=== PATIENT | male | born 1955 | race Caucasian/White ===

== ENCOUNTER 2017-01-20 09:42 | Emergency (ER) | payer MEDICARE, MEDICAID ==
--- NOTE | 2017-01-20 10:17 | ER Document Report ---
ED Medical Screen (RME) - General Mode of Arrival: Wheelchair Information source: Patient TRAVEL OUTSIDE OF THE [place] IN LAST 30 DAYS: No <MARILYN CHILDERS - Last Filed: 01/20/17 13:12> <GINA ASCENCIO - Last Filed: 01/20/17 13:54> <VIVEK WILL - Last Filed: 01/20/17 14:03> - General Chief Complaint: Pedal Edema Stated Complaint: RIGHT FOOT PAIN AND SWELLING Notes: Pt presents today with c/o right foot swelling and erythema for the last few weeks. Pt reports it "started here" and points to a location on the bottom of his foot. Pt is a heavy smoker and has been for quite some time. Pt denies a history of DM, fevers, or shortness of breath. (MARILYN CHILDERS) - Related Data Allergies/Adverse Reactions: aspirin [Aspirin] Adverse Reaction (Intermediate, Verified 01/20/17 09:56) GI upset iodine [Iodine] Adverse Reaction (Verified 01/20/17 09:56) Hives Past Medical History - Past Medical History Cardiac Medical History: Reports: Hx Hypertension Denies: Hx Coronary Artery Disease, Hx Heart Attack Pulmonary Medical History: Reports: Hx Asthma, Hx COPD Denies: Hx Bronchitis, Hx Pneumonia, Hx Tuberculosis Neurological Medical History: Denies: Hx Cerebrovascular Accident, Hx Seizures Renal/ Medical History: Reports: Hx Benign Prostatic Hyperplasia. Denies: Hx Peritoneal Dialysis GI Medical History: Reports: Hx Gastroesophageal Reflux Disease, Hx Ulcer Musculoskeltal Medical History: Reports Hx Arthritis Psychiatric Medical History: Reports: Hx Depression Past Surgical History: Reports: Hx Orthopedic Surgery - right foot, Hx Vascular Surgery - stents BLE - Immunizations Hx Diphtheria, Pertussis, Tetanus Vaccination: Yes <MARILYN CHILDERS - Last Filed: 01/20/17 13:12> Review of Systems - Review of Systems Musculoskeletal: See HPI, Joint pain - right foot swelling/erythema <MARILYN CHILDERS - Last Filed: 01/20/17 13:12> Physical Exam - Respiratory Breath sounds: Other - audible wheezing - Extremities General lower extremity: Other - Left BKA <MARILYN CHILDERS - Last Filed: 01/20/17 13:12> <GINA ASCENCIO - Last Filed: 01/20/17 13:54> <VIVEK WILL - Last Filed: 01/20/17 14:03> - Vital signs Vitals: Temp Pulse Resp BP Pulse Ox 98.3 F 96 20 144/73 H 95 01/20/17 09:55 01/20/17 09:55 01/20/17 09:55 01/20/17 09:55 01/20/17 09:55 - Skin Notes: Right foot erythema and swelling (MARILYN CHILDERS) Course - Laboratory Result Diagrams: 01/20/17 10:50 01/20/17 10:50 <MARILYN CHILDERS - Last Filed: 01/20/17 13:12> - Laboratory Result Diagrams: 01/20/17 10:50 01/20/17 10:50 <GINA ASCENCIO - Last Filed: 01/20/17 13:54> - Laboratory Result Diagrams: 01/20/17 10:50 01/20/17 10:50 <VIVEK WILL - Last Filed: 01/20/17 14:03> - Re-evaluation Re-evalutation: 01/20/17 13:[address] Juarez and Dr. Primitivo Merrill who recommends getting arterial Doppler ultrasound. (GINA ASCENCIO) I personally performed the services described in the documentation, reviewed and edited the documentation which was dictated to the scribe in my presence, and it accurately records my words and actions. (VIVEK WILL) - Vital Signs Vital signs: Temp Pulse Resp BP Pulse Ox 98.3 F 96 20 144/73 H 95 01/20/17 09:56 01/20/17 09:56 01/20/17 09:56 01/20/17 09:56 01/20/17 09:56 - Laboratory Laboratory results interpreted by me: 01/20/17 01/20/17 10:50 10:50 RDW 16.8 H Ur Leukocyte Esterase TRACE H Scribe Documentation - Scribe Written by Scribgordon:: Halle Herrera, 01/20/2017 1112 acting as scribe for :: Francine <MARILYN CHILDERS - Last Filed: 01/20/17 13:12>
[2017-01-20] MEDS ORDERED: ACETAMINOPHEN 325 MG TABLET PO ONE (10:18)
[2017-01-20] MEDS ORDERED: IPRATROPIUM/ALBUTEROL 0.5-2.5 MG/3 ML AMPUL NEB ONE (10:18)
[2017-01-20 11:15] LABS: ABSOLUTE BASOPHILS # (AUTO) 0.1 10^3/uL (0.0-0.2); ABSOLUTE EOSINOPHILS # (AUTO) 0.4 10^3/uL (0.0-0.6); ABSOLUTE LYMPHOCYTES (AUTO) 3.2 10^3/uL (0.5-4.7); ABSOLUTE MONOCYTES (AUTO) 0.9 10^3/uL (0.1-1.4); ABSOLUTE NEUT (AUTO) 5.6 10^3/uL (1.7-8.2); BASOPHILS % (AUTO) 0.5 % (0-2); EOSINOPHILS % (AUTO) 4.4 % (0-6); HEMATOCRIT 43.5 % (37.9-51.0); HEMOGLOBIN 14.6 g/dL (13.5-17.0); HGB HCT DIFFERENCE 0.3; LYMPHOCYTES % (AUTO) 31.6 % (13-45); MEAN CORPUSCULAR HEMOGLOBIN 30.2 pg (27.0-33.4); MEAN CORPUSCULAR HGB CONC 33.5 g/dL (32.0-36.0); MEAN CORPUSCULAR VOLUME 90 fl (80-97); MONOCYTES % (AUTO) 8.5 % (3-13); RED BLOOD COUNT 4.82 10^6/uL (4.35-5.55); RED CELL DISTRIBUTION WIDTH 16.8 % (11.5-14.0); WHITE BLOOD COUNT 10.1 10^3/uL (4.0-10.5)
[2017-01-20 11:19] LABS: PROTHROMBIN TIME 12.5 SEC (11.4-15.4)
[2017-01-20 11:20] LABS: APPEARANCE,URINE CLEAR; BILIRUBIN,URINE NEGATIVE (NEGATIVE); GLUCOSE, URINE NEGATIVE (NEGATIVE); KETONES,URINE NEGATIVE (NEGATIVE); LEUKOCYTE ESTERASE,URINE TRACE (NEGATIVE); NITRITE,URINE NEGATIVE (NEGATIVE); PROTEIN,URINE NEGATIVE (NEGATIVE); URINE SPECIFIC GRAVITY 1.011; UROBILINOGEN,URINE NEGATIVE mg/dL (<2.0)
[2017-01-20 11:30] LABS: ALANINE AMINOTRANSFERASE 22 U/L (21-72); ALBUMIN 3.9 g/dL (3.5-5.0); ALKALINE PHOSPHATASE 71 U/L (38-126); ANION GAP 11 (5-19); ASPARTATE AMINO TRANSFERASE 18 U/L (17-59); BILIRUBIN,DIRECT 0.3 mg/dL (0.0-0.4); BILIRUBIN,TOTAL 0.4 mg/dL (0.2-1.3); BLOOD UREA NITROGEN 7 mg/dL (7-20); CALCIUM 9.6 mg/dL (8.4-10.2); CARBON DIOXIDE 27 mmol/L (22-30); CHLORIDE 103 mmol/L (98-107); CREATININE RESULT 0.74 mg/dL (0.52-1.25); GLUCOSE 75 mg/dL (75-110); SODIUM 140.7 mmol/L (137-145); TOTAL PROTEIN 6.8 g/dL (6.3-8.2); URIC ACID 6.7 mg/dL (3.5-8.5)
--- NOTE | 2017-01-20 16:02 | XCELERA REPORT ---
[address] [address] Lower Extremity Arterial Evaluation Name: JENNIFER RIVER Age: 61 yrs Gender: Male : 1955 Patient Status: Emergency Patient Location: ER Study Date: 01/20/2017 02:27 PM Procedure: A color flow and duplex scan of the lower extremity arteries was performed on the right with velocity and waveform anaylsis. Reason For Study: decreased right foot pulse Ordering Physician: GINA BARAJAS Performed By: Dulce Massey Measurements and Calculations Right Left CREASING AND CUTTING PRESS FEEDER PSV 198.2 cm/sec Prox PFA PSV -99.7 cm/sec Prox SFA PSV 66.9 cm/sec Mid SFA PSV -40.6 cm/sec Dist SFA PSV -35.7 cm/sec Prox Pop A PSV 41.5 cm/sec Dist ZUNILDA PSV 18.5 cm/sec Prox FASHION PHOTOGRAPHER PSV 48.1 cm/sec Mid FASHION PHOTOGRAPHER PSV 17.1 cm/sec Dist FASHION PHOTOGRAPHER PSV 22.6 cm/sec Gino Pedis PSV 11.4 cm/sec Right Side Arterial Evaluation Normal velocity and biphasic waveforms in the Common Femoral artery. Monophasic with reasonable velocity to the Posterior Tibial artery. Otherwise trickle flow in the infrageniculate vessels. 20-49 % stenosis at the inflow vessels, with severe sequential disease. Ankle Brachial index was not done. Critical Findings Discussed with WALDEMAR Barajas in the ER at about 1600 hours. Interpretation Summary Severe hemodynamically significant lesions in the right lower extremity only, on duplex imaging, at rest. : GINA BARAJAS > Primitivo Merrill
--- NOTE | 2017-01-20 16:22 | ER Document Report ---
ED Extremity Problem, Lower - General Chief Complaint: Pedal Edema Stated Complaint: RIGHT FOOT PAIN AND SWELLING Time Seen by Provider: 01/20/17 10:17 Mode of Arrival: Wheelchair Information source: Patient Notes: 61 yo male c/o right foot swelling for months, started with a callous of the 4th left plantar toe, getting worse with reddness, swelling and pain for last few weeks. 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 No fever or chills. ? right leg stent. Pt unreliable for medications he is supposed to take. PCP dr. White. TRAVEL OUTSIDE OF THE [place] IN LAST 30 DAYS: No - Related Data Allergies/Adverse Reactions: aspirin [Aspirin] Adverse Reaction (Intermediate, Verified 01/20/17 09:56) GI upset iodine [Iodine] Adverse Reaction (Verified 01/20/17 09:56) Hives Past Medical History - General Information source: Patient - Social History Smoking Status: Current Every Day Smoker Chew tobacco use (# tins/day): No Frequency of alcohol use: None Drug Abuse: None Lives with: Spouse/Significant other Family History: Reviewed & Not Pertinent Patient has suicidal ideation: No Patient has homicidal ideation: No - Past Medical History Cardiac Medical History: Reports: Hx Hypertension Pulmonary Medical History: Reports: Hx Asthma, Hx COPD Renal/ Medical History: Reports: Hx Benign Prostatic Hyperplasia. Denies: Hx Peritoneal Dialysis GI Medical History: Reports: Hx Gastroesophageal Reflux Disease, Hx Ulcer Musculoskeltal Medical History: Reports Hx Arthritis Psychiatric Medical History: Reports: Hx Depression Past Surgical History: Reports: Hx Orthopedic Surgery - right foot, Hx Vascular Surgery - stents BLE - Immunizations Hx Diphtheria, Pertussis, Tetanus Vaccination: Yes Hx Pneumococcal Vaccination: 05/29/12 Review of Systems - Review of Systems Constitutional: No symptoms reported EENT: No symptoms reported Cardiovascular: No symptoms reported Respiratory: No symptoms reported Gastrointestinal: No symptoms reported Genitourinary: No symptoms reported Male Genitourinary: No symptoms reported Musculoskeletal: See HPI Skin: No symptoms reported Hematologic/Lymphatic: No symptoms reported Neurological/Psychological: No symptoms reported Physical Exam - Vital signs Vitals: Temp Pulse Resp BP Pulse Ox 98.3 F 96 20 144/73 H 95 01/20/17 09:55 01/20/17 09:55 01/20/17 09:55 01/20/17 09:55 01/20/17 09:55 Interpretation: Normal - General General appearance: Appears well, Alert - HEENT Head: Normocephalic, Atraumatic Eyes: Normal Pupils: PERRL Neck: Supple - Respiratory Respiratory status: No respiratory distress Chest status: Nontender Breath sounds: Normal Chest palpation: Normal - Cardiovascular Rhythm: Regular Heart sounds: Normal auscultation Murmur: No - Abdominal Inspection: Normal Distension: No distension Bowel sounds: Normal Tenderness: Nontender Organomegaly: No organomegaly - Back Back: Normal, Nontender - Extremities General upper extremity: Normal inspection, Nontender, Normal color, Normal ROM , Normal temperature General lower extremity: Normal inspection, Nontender, Normal color, Normal ROM , Normal temperature, Normal weight bearing. No: Jerrica's sign Foot: Tender - warm red, dorsal right foot, Abrasion - 1 cm superficial plantar right great toe, small callous plantar 4th distal toe,, Edema - Neurological Neuro grossly intact: Yes Cognition: Normal Orientation: AAOx4 [place] Coma Scale Eye Opening: Spontaneous Mckenna Coma Scale Verbal: Oriented [place] Coma Scale Motor: Obeys Commands [place] Coma Scale Total: 15 Speech: Normal Motor strength normal: LUE, RUE, LLE, RLE Sensory: Normal - Psychological Associated symptoms: Normal affect, Normal mood - Skin Skin Temperature: Warm Skin Moisture: Dry Skin Color: Normal Notes: see above Course - Re-evaluation Re-evalutation: 01/20/17 16:[address] christensen and Trena Henley who read the arterial ultrasound. He has a slow trickle to the right ankle and explain this to the patient. He will follow up with Dr. Melissa Henley on Friday and was restart the Plavix 75 mg per day that he does not believe that he is taking so I'll write another prescription explained why he needs to take that I also recommended that he quit smoking. Because it is warm and red and he has the abrasion on his base of his toe I will and in a week of antibiotic case this is also infectious. Patient is to follow with Baudilio Munoz MD tomorrow.` 01/20/17 16:29 I spoke with Brianda Cardoso and Dr. Cronin this is a nurse and they will see him tomorrow afternoon at 345 and he is to take all his medications because he is supposed to be on Plavix 75 mg daily and the patient did not know so she will make sure that he restarts the Plavix 75 mg a day as instructed by Dr. Melissa Henley. - Vital Signs Vital signs: Temp Pulse Resp BP Pulse Ox 98.4 F 84 20 141/71 H 92 01/20/17 16:42 01/20/17 16:42 01/20/17 16:42 01/20/17 16:42 01/20/17 16:42 - Laboratory Result Diagrams: 01/20/17 10:50 01/20/17 10:50 Laboratory results interpreted by me: 01/20/17 01/20/17 10:50 10:50 RDW 16.8 H Ur Leukocyte Esterase TRACE H Discharge - Discharge Clinical Impression: poor arterial flow to right foot Abrasion of right great toe Qualifiers: Encounter type: initial encounter Qualified Code(s): S90.411A - Abrasion, right great toe, initial encounter Condition: Good Disposition: HOME, SELF-CARE Instructions: Cellulitis ([facility]), Cephalexin ([facility]) Additional Instructions: go see dr. white tomorrow at 3:45 pm tomorrow and bring ALL YOUR MEDICATIONS. STOP SMOKING call and see dr melissa Henley friday he is a local vascular surgeon Please complete the patient satisfaction survey if you get one, and return it.. If you do not receive a survey, then you can go to the [facility] website, [email or web address] and place your comments about your very good care. Thank you very much. It was a pleasure being your medical provider today. Prescriptions: Cephalexin Monohydrate [Keflex 500 mg Capsule] 500 mg PO QID #28 capsule Referrals: BAUDILIO MUNOZ MD [Primary Care Provider] - Follow up tomorrow (3:45 pm) MELISSA HENLEY MD [ACTIVE STAFF] - 01/22/17 (call friday for appointment on friday)
[2017-01-20 16:49] VITALS: BP 141/71
--- NOTE | 2017-01-20 20:33 | EKG REPORT ---
SEVERITY:- ABNORMAL ECG - SINUS RHYTHM RIGHT BUNDLE BRANCH BLOCK BORDERLINE INFERIOR Q WAVES : Confirmed by: Niko Slaughter 20-Jan-2017 20:31:53
== END 2017-01-20 16:49 | disposition home or self-care (01) ==
LOC: ER 09:42
DX: I99.8 Other disorder of circulatory system (principal); S90.411A Abrasion, right great toe, initial encounter; X58.XXXA Exposure to other specified factors, initial encounter; F17.200 Nicotine dependence, unspecified, uncomplicated; I10 Essential (primary) hypertension; J44.9 Chronic obstructive pulmonary disease, unspecified; J45.909 Unspecified asthma, uncomplicated; Z88.6 Allergy status to analgesic agent
CPT/HCPCS: 93005; 94640; 99285; 36415; 82962; 84550; 85025; 85610; 80053; 81001; 93926 ×2; 71020; 73630; 93010; A9270 ×2; J7620

== ENCOUNTER 2017-08-24 07:56 | Emergency (ER) | payer MEDICARE, MEDICAID ==
[2017-08-24] MEDS ORDERED: NORMAL SALINE 1000 ML 1,000 ML IV ONE (08:49)
[2017-08-24 09:14] LABS: ABSOLUTE EOSINOPHILS # (AUTO) 0.4 10^3/uL (0.0-0.6); ABSOLUTE LYMPHOCYTES (AUTO) 3.5 10^3/uL (0.5-4.7); ABSOLUTE MONOCYTES (AUTO) 0.6 10^3/uL (0.1-1.4); ABSOLUTE NEUT (AUTO) 5.7 10^3/uL (1.7-8.2); BASOPHILS % (AUTO) 0.2 % (0-2); EOSINOPHILS % (AUTO) 3.7 % (0-6); HEMATOCRIT 43.3 % (37.9-51.0); HEMOGLOBIN 14.6 g/dL (13.5-17.0); HGB HCT DIFFERENCE 0.5; LYMPHOCYTES % (AUTO) 34.6 % (13-45); MEAN CORPUSCULAR HEMOGLOBIN 30.4 pg (27.0-33.4); MEAN CORPUSCULAR HGB CONC 33.7 g/dL (32.0-36.0); MEAN CORPUSCULAR VOLUME 90 fl (80-97); MONOCYTES % (AUTO) 5.8 % (3-13); RED BLOOD COUNT 4.79 10^6/uL (4.35-5.55); RED CELL DISTRIBUTION WIDTH 15.7 % (11.5-14.0); SEGMENTED NEUTROPHILS % (AUTO) 55.7 % (42-78); WHITE BLOOD COUNT 10.2 10^3/uL (4.0-10.5)
[2017-08-24 09:40] LABS: ANION GAP 10 (5-19); BLOOD UREA NITROGEN 13 mg/dL (7-20); CALCIUM 9.9 mg/dL (8.4-10.2); CARBON DIOXIDE 28 mmol/L (22-30); CHLORIDE 102 mmol/L (98-107); CREATININE RESULT 0.93 mg/dL (0.52-1.25); GLUCOSE 93 mg/dL (75-110)
[2017-08-24 09:41] LABS: APPEARANCE,URINE CLEAR; BILIRUBIN,URINE NEGATIVE (NEGATIVE); GLUCOSE, URINE NEGATIVE (NEGATIVE); KETONES,URINE NEGATIVE (NEGATIVE); LEUKOCYTE ESTERASE,URINE NEGATIVE (NEGATIVE); NITRITE,URINE NEGATIVE (NEGATIVE); PROTEIN,URINE NEGATIVE (NEGATIVE); URINE SPECIFIC GRAVITY 1.027
[2017-08-24] MEDS ORDERED: TAMSULOSIN HCL 0.4 MG CAP.SR.24H PO ONE (11:04)
--- NOTE | 2017-08-24 11:07 | ER Document Report ---
ED General - General Chief Complaint: Urinary Problem Stated Complaint: URINARY ISSUE Time Seen by Provider: 08/24/17 08:45 TRAVEL OUTSIDE OF THE [place] IN LAST 30 DAYS: No - HPI Patient complains to provider of: Urinary retention Notes: Patient states has not urinated the last 24-48 hours. Patient states he is on a diuretic medication is having lower suprapubic abdominal pain. Denies any history of urinary retention in the past denies any prostate issues. Patient states he is not on any medication such as Flomax. Denies fevers chills nausea vomiting diarrhea denies any trauma - Related Data Allergies/Adverse Reactions: aspirin [Aspirin] Adverse Reaction (Intermediate, Verified 01/20/17 09:56) GI upset iodine [Iodine] Adverse Reaction (Verified 01/20/17 09:56) Hives Past Medical History - Social History Smoking Status: Current Every Day Smoker Frequency of alcohol use: None Drug Abuse: None Family History: Reviewed & Not Pertinent Patient has suicidal ideation: No Patient has homicidal ideation: No - Past Medical History Cardiac Medical History: Reports: Hx Hypertension Denies: Hx Coronary Artery Disease, Hx Heart Attack Pulmonary Medical History: Reports: Hx Asthma, Hx COPD Denies: Hx Bronchitis, Hx Pneumonia, Hx Tuberculosis Neurological Medical History: Denies: Hx Cerebrovascular Accident, Hx Seizures Renal/ Medical History: Reports: Hx Benign Prostatic Hyperplasia. Denies: Hx Peritoneal Dialysis GI Medical History: Reports: Hx Gastroesophageal Reflux Disease, Hx Pancreatitis , Hx Ulcer Musculoskeltal Medical History: Reports Hx Arthritis Psychiatric Medical History: Reports: Hx Depression Past Surgical History: Reports: Hx Orthopedic Surgery - right foot, Hx Vascular Surgery - stents BLE - Immunizations Hx Diphtheria, Pertussis, Tetanus Vaccination: Yes Hx Pneumococcal Vaccination: 05/29/12 Review of Systems - Review of Systems Constitutional: No symptoms reported EENT: No symptoms reported Cardiovascular: No symptoms reported Respiratory: No symptoms reported Gastrointestinal: No symptoms reported Genitourinary: Retention Male Genitourinary: No symptoms reported Musculoskeletal: No symptoms reported Skin: No symptoms reported Hematologic/Lymphatic: No symptoms reported Neurological/Psychological: No symptoms reported -: Yes All other systems reviewed and negative Physical Exam - Vital signs Vitals: Temp Pulse Resp BP Pulse Ox 98.4 F 81 18 149/75 H 94 08/24/17 08:06 08/24/17 08:06 08/24/17 08:06 08/24/17 08:06 08/24/17 08:06 Interpretation: Normal - General General appearance: Appears well, Alert - HEENT Head: Normocephalic, Atraumatic Eyes: Normal Pupils: PERRL - Respiratory Respiratory status: No respiratory distress Chest status: Nontender Breath sounds: Normal Chest palpation: Normal - Cardiovascular Rhythm: Regular Heart sounds: Normal auscultation Murmur: No - Abdominal Inspection: Normal Distension: No distension Bowel sounds: Normal Tenderness: Tender - Tenderness in the suprapubic region tenderness to palpation over the bladder palpable bladder felt Organomegaly: No organomegaly - Genitourinary Inspection: Normal - Back Back: Normal, Nontender - Extremities General upper extremity: Normal inspection, Nontender, Normal color, Normal ROM , Normal temperature General lower extremity: Normal inspection, Nontender, Normal color, Normal ROM , Normal temperature, Normal weight bearing. No: Jerrica's sign - Neurological Neuro grossly intact: Yes Cognition: Normal Orientation: AAOx4 Mckenna Coma Scale Eye Opening: Spontaneous [place] Coma Scale Verbal: Oriented Mckenna Coma Scale Motor: Obeys Commands [place] Coma Scale Total: 15 Speech: Normal Motor strength normal: LUE, RUE, LLE, RLE Sensory: Normal - Psychological Associated symptoms: Normal affect, Normal mood - Skin Skin Temperature: Warm Skin Moisture: Dry Skin Color: Normal Course - Re-evaluation Re-evalutation: 08/24/17 15:19 Quinones catheter was inserted patient feeling much better after injection. No signs of infection unclear etiology for retention will start patient on Flomax while the patient follow-up with PCP 1 week for further evaluation and possible Quinones catheter removal. - Vital Signs Vital signs: Temp Pulse Resp BP Pulse Ox 98.1 F 95 20 152/61 H 95 08/24/17 12:06 08/24/17 12:06 08/24/17 12:06 08/24/17 12:06 08/24/17 12:06 - Laboratory Result Diagrams: 08/24/17 09:00 08/24/17 09:00 Laboratory results interpreted by me: 08/24/17 08/24/17 09:00 09:26 RDW 15.7 H Urine Urobilinogen 2.0 H Urine Ascorbic Acid 20 H Discharge - Discharge Clinical Impression: Urinary retention Condition: Good Disposition: HOME, SELF-CARE Instructions: Urinary Retention ([facility]) Additional Instructions: Your laboratory studies not show any acute abnormality at this time. Please follow-up with your primary care physician return to the ER symptoms worsen. Prescriptions: Tamsulosin HCl [Flomax 0.4 mg Cap.sr] 0.4 mg PO DAILY #7 cap.sr.24h Forms: Return to Work Referrals: JANET MUNOZ MD [Primary Care Provider] - Follow up in 1 week
[2017-08-24 12:07] VITALS: BP 152/61
== END 2017-08-24 12:17 | disposition home or self-care (01) ==
LOC: ER 07:56
DX: R33.9 Retention of urine, unspecified (principal); R39.198 Other difficulties with micturition; R10.30 Lower abdominal pain, unspecified; F17.200 Nicotine dependence, unspecified, uncomplicated
CPT/HCPCS: 99283; 96360; 51702; 36415; 85025; 80048; 81001; A9270; J7030

== ENCOUNTER 2017-08-30 10:27 | Emergency (ER) | payer MEDICARE, MEDICAID ==
--- NOTE | 2017-08-30 11:03 | ER Document Report ---
ED GI/ - General Chief Complaint: Needs Urinary Cath Replaced Stated Complaint: CATHETER REMOVAL Time Seen by Provider: 08/30/17 10:47 Information source: Patient Notes: 62-year-old man presents to ED to have his Quinones catheter removed. He states he was here about a week ago because he could not urinate he had a Quinones catheter put in and it has been draining freely. The pain the Quinones is now causing cramps and would like to have the Quinones removed. He states he has not followed up with his primary doctors as instructed. TRAVEL OUTSIDE OF THE [place] IN LAST 30 DAYS: No - HPI Patient complains to provider of: Quinones catheter problem - Would like his Quinones catheter removed Onset: Other - For the past place week Timing/Duration: Gradual Quality of pain: Cramping Severity at maximum: Mild Severity in ED: Mild Pain Level: 1 Associated symptoms: Other - Would like Quinones catheter removed Exacerbated by: Movement Relieved by: Denies Similar symptoms previously: Yes Recently seen / treated by doctor: Yes - Related Data Allergies/Adverse Reactions: aspirin [Aspirin] Adverse Reaction (Intermediate, Verified 08/30/17 10:30) GI upset iodine [Iodine] Adverse Reaction (Verified 08/30/17 10:30) Hives Past Medical History - General Information source: Patient - Social History Smoking Status: Current Every Day Smoker Cigarette use (# per day): Yes - 2 packs per day Chew tobacco use (# tins/day): No Smoking Education Provided: Yes - 3 minutes Frequency of alcohol use: None Drug Abuse: None Lives with: Family Family History: Reviewed & Not Pertinent Patient has suicidal ideation: No Patient has homicidal ideation: No - Past Medical History Cardiac Medical History: Reports: Hx Hypertension Pulmonary Medical History: Reports: Hx Asthma, Hx COPD, Hx Pneumonia EENT Medical History: Reports: None Neurological Medical History: Reports: None Endocrine Medical History: Reports: None Renal/ Medical History: Reports: Hx Benign Prostatic Hyperplasia, Other - Quinones was placed due to urinary retention last week on 08/24/2017 GI Medical History: Reports: Hx Gastroesophageal Reflux Disease, Hx Pancreatitis , Hx Ulcer Musculoskeltal Medical History: Reports Hx Arthritis, Reports Hx Musculoskeletal Deformity - Left BKA Skin Medical History: Reports None Psychiatric Medical History: Reports: Hx Depression Traumatic Medical History: Reports: None Infectious Medical History: Reports: None Past Surgical History: Reports: Hx Orthopedic Surgery - right foot, left BKA, Hx Vascular Surgery - stents BLE - Immunizations Hx Diphtheria, Pertussis, Tetanus Vaccination: Yes Hx Pneumococcal Vaccination: 05/29/12 Review of Systems - Review of Systems Constitutional: No symptoms reported EENT: No symptoms reported Cardiovascular: No symptoms reported Respiratory: No symptoms reported Gastrointestinal: Abdomen distended - Patient states this is his normal, Abdominal pain - Hypoactive bowel sounds Genitourinary: Other - Quinones removed Male Genitourinary: No symptoms reported Musculoskeletal: No symptoms reported Skin: No symptoms reported Hematologic/Lymphatic: No symptoms reported Neurological/Psychological: No symptoms reported -: Yes All other systems reviewed and negative Physical Exam - Vital signs Vitals: Temp Pulse Resp BP Pulse Ox 98.1 F 107 H 20 121/71 95 08/30/17 10:34 08/30/17 10:34 08/30/17 10:34 08/30/17 10:34 08/30/17 10:34 Interpretation: Normal - General General appearance: Appears well, Alert - HEENT Head: Normocephalic, Atraumatic Eyes: Normal Pupils: PERRL - Respiratory Respiratory status: No respiratory distress Chest status: Nontender Breath sounds: Normal Chest palpation: Normal - Cardiovascular Rhythm: Regular Heart sounds: Normal auscultation Murmur: No - Abdominal Inspection: Normal Distension: Distended - Patient states this is his normal Bowel sounds: Hyperactive Tenderness: Nontender Organomegaly: No organomegaly - Back Back: Normal, Nontender - Extremities General upper extremity: Normal inspection, Nontender, Normal color, Normal ROM , Normal temperature General lower extremity: Normal inspection, Nontender, Normal color, Normal ROM , Normal temperature, Normal weight bearing. No: Jerrica's sign Calf: No: Normal - Left BKA Ankle: No: Normal - Left BKA Foot: No: Normal - Left BKA - Neurological Neuro grossly intact: Yes Cognition: Normal Orientation: AAOx4 Mckenna Coma Scale Eye Opening: Spontaneous [place] Coma Scale Verbal: Oriented [place] Coma Scale Motor: Obeys Commands Mckenna Coma Scale Total: 15 Speech: Normal Motor strength normal: LUE, RUE, LLE, RLE Sensory: Normal - Psychological Associated symptoms: Normal affect, Normal mood - Skin Skin Temperature: Warm Skin Moisture: Dry Skin Color: Normal Course - Re-evaluation Re-evalutation: 08/30/17 11:07 Quinones was removed patient was given 2 cups of water will monitor till he urinates if he is urinating fine then we will discharge him home. 08/30/17 13:00 patient was discharged home after he was able to void. He needed several glasses of water before he could urinate. - Vital Signs Vital signs: Temp Pulse Resp BP Pulse Ox 97.8 F 104 H 16 127/75 H 96 08/30/17 13:42 08/30/17 13:42 08/30/17 13:42 08/30/17 13:42 08/30/17 13:42 Discharge - Discharge Clinical Impression: Encounter for Quinones catheter removal Condition: Stable Disposition: HOME, SELF-CARE Additional Instructions: Your Quinones catheter was removed. Have been able to urinate after the Quinones was removed. Need to follow-up with your primary doctor on the September 02 as previously instructed. Return to the ED or follow-up with your primary doctor if you have trouble urinating and are unable to urinate for more than 12 hours. FOLLOW-UP CARE: If you have been referred to a physician for follow-up care, call the physician s office for an appointment as you were instructed or within the next two days. If you experience worsening or a significant change in your symptoms, notify the physician immediately or return to the Emergency Department at any time for re-evaluation. Forms: Smoking Cessation Education Referrals: JANET MUNOZ MD [Primary Care Provider] - 09/02/17
[2017-08-30 13:43] VITALS: BP 127/75
== END 2017-08-30 13:43 | disposition home or self-care (01) ==
LOC: ER 10:27
DX: Z46.6 Encounter for fitting and adjustment of urinary device (principal); R25.2 Cramp and spasm; I10 Essential (primary) hypertension; J44.9 Chronic obstructive pulmonary disease, unspecified; F17.210 Nicotine dependence, cigarettes, uncomplicated; Z71.6 Tobacco abuse counseling
CPT/HCPCS: 99283

== ENCOUNTER 2020-01-10 15:46 | Observation (INO) | payer MEDICARE, MEDICAID ==
[~2020-01-10 15:46] MED LIST: GLYCOPYRROLATE 1 MG/5 ML VIAL ONE; KETOROLAC TROMETHAMINE 60 MG/2 ML SDV ONE; NEOSTIGMINE METHYLSULFATE 10 MG/10 ML VIAL ONE; PHENYLEPHRINE HCL INJ/PF 10 MG/1 ML SDV ONE; ROCURONIUM BROMIDE INJ 50 MG/5 ML VIAL IV ONE; SUCCINYLCHOLINE CHLORIDE INJ 200 MG/10 ML VIAL ONE
[2020-01-10] MEDS ORDERED: MORPHINE SULFATE 10 MG/ML INJ IV ONE ×2 (16:17→19:07)
[2020-01-10] MEDS ORDERED: ONDANSETRON HCL INJ/PF 4 MG/2 ML SDV IV ONE ×2 (16:17→19:07)
[2020-01-10] MEDS ORDERED: NORMAL SALINE 1000 ML 1,000 ML IV ONE (16:18)
[2020-01-10] MEDS ORDERED: PANTOPRAZOLE SODIUM 40 MG VIAL IV ONE (16:18)
--- NOTE | 2020-01-10 16:25 | ER Document Report ---
ED GI/ - General Chief Complaint: Abdominal Pain Stated Complaint: ABDOMINAL PAIN Time Seen by Provider: 01/10/20 16:03 Notes: Patient is a 64-year-old male who presents emergency department with a chief complaint of abdominal pain. Patient states that his pain started last night. States that the pain is in his mid lower abdomen, just below his navel. States that he does have history of a GI bleed in the past. Patient states that he has been out of his Protonix for the past week. Patient is a poor historian. He is on Plavix, but cannot not tell me why he is on Plavix. He states he is on it for high blood pressure. TRAVEL OUTSIDE OF THE [place] IN LAST 30 DAYS: No - Related Data Allergies/Adverse Reactions: aspirin [Aspirin] Adverse Reaction (Intermediate, Verified 08/30/17 10:30) GI upset iodine [Iodine] Adverse Reaction (Verified 08/30/17 10:30) Hives Past Medical History - General Information source: Patient - Social History Smoking Status: Current Every Day Smoker Family History: Reviewed & Not Pertinent - Past Medical History Cardiac Medical History: Reports: Hx Hypertension Denies: Hx Coronary Artery Disease, Hx Heart Attack Pulmonary Medical History: Reports: Hx Asthma, Hx COPD, Hx Pneumonia Denies: Hx Bronchitis, Hx Tuberculosis Neurological Medical History: Denies: Hx Cerebrovascular Accident, Hx Seizures Renal/ Medical History: Reports: Hx Benign Prostatic Hyperplasia. 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 Denies recent unintentional weight loss. Denies fever, chills, or sweats. EENT: Denies eye, ear, throat, or mouth pain, discharge, or symptoms. Denies nasal or sinus congestion. CARDIOVASCULAR: Denies chest pain. RESPIRATORY: Denies shortness of breath, cough, congestion, difficulty breathing, or wheezing. GASTROINTESTINAL: See HPI. GENITOURINARY: Denies difficulty urinating, burning, blood in urine, urgency or frequency. MUSCULOSKELETAL: Denies neck and back pain. Denies joint pain or swelling. SKIN: Denies rash, itchiness, or lesions HEMATOLOGIC : Denies easy bruising or bleeding. LYMPHATIC: Denies swollen, painful, enlarged glands. NEUROLOGICAL: Denies no numbness or tingling denies weakness. Denies headache. Denies altered mental status. Denies alteration in speech. PSYCHIATRIC: Denies stress, anxiety, alteration in sleep patterns, or depression. All other systems reviewed and negative. Physical Exam - Vital signs Vitals: Resp 17 01/10/20 15:54 - Notes Notes: PHYSICAL EXAMINATION: GENERAL: Appears well, healthy, well-nourished, no acute distress. HEAD: Normocephalic, atraumatic. EYES: PERRL, conjunctiva normal, all extraocular movements intact, sclera nonicteric ENT: Moist mucous membranes. NECK: Supple, no noticeable swelling, redness, rash. Normal range of motion. LUNGS: Equal breath sounds bilaterally and clear to auscultation. No wheezes rales or rhonchi. CARDIOVASCULAR: S1-S2, regular rate, regular rhythm. Radial pulses 2+, normal. ABDOMEN: Normoactive bowel sounds. Soft, very tender generalized abdomen. Rebound tenderness noted in lower abdomen. Guarding noted. EXTREMITIES: Normal strength and range of motion, no pitting or edema. No cyanosis. Left BKA. NEUROLOGICAL: Moves all extremities upon command. Strength 5/5 in all extremities. PSYCH: Normal mood, normal affect. SKIN: Warm, dry. No rash, lesions, ulcerations noted. Normal skin turgor. Course - Re-evaluation Re-evalutation: 01/10/20 19:[address] shows acute appendicitis. Patient has a elevated white count of leukocytosis of 22,200 with a left shift. Hemo-globin and hematocrit are stable. Chemistries show a mild hyponatremia of 132.6, which he received IV fluids 4. His calcium is also elevated at 11.4. I called Dr. Miguel, the manav lameon on-call. I left a message on his cell phone. Awaiting callback. 01/10/20 20:[address] Miguel, the surgeon regional rehabilitation director. He will follow the patient. I will call the hospitalist for admission. 01/10/20 20:[address] Calvo, the hospitalist. Patient will be admitted to the surgical floor. - Vital Signs Vital signs: Temp Pulse Resp BP Pulse Ox 97.7 F 18 158/116 H 95 01/10/20 16:10 01/10/20 17:01 01/10/20 17:01 01/10/20 17:01 - Laboratory Result Diagrams: 01/10/20 16:42 01/10/20 16:37 Laboratory results interpreted by me: 01/10/20 01/10/20 16:37 16:42 WBC 22.2 H RDW 14.5 H Seg Neuts % (Manual) 81 H Lymphocytes % (Manual) 7 L Abs Neuts (Manual) 18.6 H Abs Monocytes (Manual) 1.6 H Sodium 132.6 L Chloride 97 L Glucose 125 H Calcium 11.4 H Discharge - Discharge Clinical Impression: Appendicitis Qualifiers: Appendicitis type: acute appendicitis Acute appendicitis type: other Qualified Code(s): K35.890 - Other acute appendicitis without perforation or gangrene Condition: Stable Disposition: ADMITTED INPATIENT Admitting Provider: Lubna (Hospitalist) Unit Admitted: Surgical Floor
[2020-01-10 16:58] LABS: HEMATOCRIT 44.5 % (37.9-51.0); HEMOGLOBIN 15.9 g/dL (13.5-17.0); MEAN CORPUSCULAR HEMOGLOBIN 31.9 pg (27.0-33.4); MEAN CORPUSCULAR HGB CONC 35.8 g/dL (32.0-36.0); MEAN CORPUSCULAR VOLUME 89 fl (80-97); PLATELET COUNT 283 10^3/uL (150-450); RED BLOOD COUNT 4.99 10^6/uL (4.35-5.55); RED CELL DISTRIBUTION WIDTH 14.5 % (11.5-14.0)
[2020-01-10 17:06] LABS: ALBUMIN 4.8 g/dL (3.5-5.0); ALKALINE PHOSPHATASE 61 U/L (38-126); ANION GAP 11 (5-19); ASPARTATE AMINO TRANSFERASE 22 U/L (17-59); BILIRUBIN,TOTAL 0.5 mg/dL (0.2-1.3); BLOOD UREA NITROGEN 11 mg/dL (7-20); CALCIUM 11.4 mg/dL (8.4-10.2); CARBON DIOXIDE 25 mmol/L (22-30); CHLORIDE 97 mmol/L (98-107); GLUCOSE 125 mg/dL (75-110); POTASSIUM 4.1 mmol/L (3.6-5.0); TOTAL PROTEIN 7.8 g/dL (6.3-8.2)
[2020-01-10 17:48] LABS: ABSOLUTE MONOCYTES # (MANUAL) 1.6 10^3/uL (0.1-1.4); BAND NEUTROPHILS % (MANUAL) 3 % (3-5); BASOPHILS % (MANUAL) 0 % (0-2); LYMPHOCYTES % (MANUAL) 7 % (13-45); MONOCYTES % (MANUAL) 7 % (3-13); SEGMENTED NEUTROPHILS % (MAN) 81 % (42-78); TOTAL CELLS COUNTED 100
[2020-01-10 17:50] LABS: PLATELET COMMENT ADEQUATE
[2020-01-10 17:51] LABS: ANISOCYTOSIS SLIGHT
[2020-01-10 17:55] LABS: WHITE BLOOD COUNT 22.2 10^3/uL (4.0-10.5)
[2020-01-10 18:05] LABS: EOSINOPHILS % (MANUAL) 0 % (0-6)
--- NOTE | 2020-01-10 18:40 | RADIOLOGY REPORT (SQ) ---
EXAM DESCRIPTION: CT ABD/PELVIS WITH IV ONLY IMAGES COMPLETED DATE/TIME: 01/10/2020 6:23 pm REASON FOR STUDY: abdominal pain COMPARISON: 12/23/2014. TECHNIQUE: CT scan of the abdomen and pelvis performed using helical scanning technique with dynamic intravenous contrast injection. No oral contrast. Images reviewed with lung, soft tissue, and bone windows. Reconstructed coronal and sagittal MPR images reviewed. Delayed images for evaluation of the urinary system also acquired. All images stored on PACS. All CT scanners at this facility use dose modulation, iterative reconstruction, and/or weight based d osing when appropriate to reduce radiation dose to as low as reasonably achievable (ALARA). [facility]: Dose Right [facility]: CareDose [facility]: Dose Right [facility]: Teradose 4D [facility]: CareXtend CONTRAST TYPE AND DOSE: contrast/concentration: Isovue 350.00 mg/ml; Total Contrast Delivered: 97.0 ml; Total Saline Delivered: 54.0 ml RENAL FUNCTION: BUN 11 creatinine 0.83. RADIATION DOSE: CT Rad equipment meets quality standard of care and radiation dose reduction techniq ues were employed. CTDIvol: 14.6 - 18.0 mGy. DLP: 1788 mGy-cm.. LIMITATIONS: None. FINDINGS: LOWER CHEST: No significant findings. No nodules or infiltrates. LIVER: Normal size. No masses. No dilated ducts. SPLEEN: Normal size. No focal lesions. PANCREAS: No masses. No significant calcifications. No adjacent inflammation or peripancreatic fluid collections. Pancreatic duct not dilated. GALLBLADDER: No identified stones by CT criteria. No inflammatory changes to suggest cholecystitis. ADRENAL GLANDS: No significant masses or asymmetry. RIGHT KIDNEY AND URETER: No solid masses. No significant calcifications. No hydronephrosis or hyd roureter. LEFT KIDNEY AND URETER: No solid masses. No significant calcifications. No hydronephrosis or hydr oureter. AORTA AND VESSELS: No aneurysm. No dissection. Right iliac artery stent. Renal arteries, SMA, chelsey c without stenosis. RETROPERITONEUM: No retroperitoneal adenopathy, hemorrhage or masses. BOWEL AND PERITONEAL CAVITY: No masses or inflammatory changes. No free fluid or peritoneal masses. APPENDIX: Mild distention with inflammatory changes in the alexandru appendiceal tissues. No abnormal flu id collection or extraluminal gas. PELVIS: No mass. No free fluid. Normal bladder. ABDOMINAL WALL: No masses. No hernias. BONES: No significant or acute findings. Degenerative changes in the spine. OTHER: No other significant finding. IMPRESSION: 1. ACUTE APPENDICITIS. NO EVIDENCE OF ABSCESS OR PERFORATION. 2. NO OTHER SIGNIFICANT OR ACUTE FINDING IN THE ABDOMEN OR PELVIS ON CT SCAN WITH IV CONTRAST. TECHNICAL DOCUMENTATION: JOB ID: [id number] Quality ID # [id number]: Final reports with documentation of one or more dose reduction techniques (e.g., Au tomated exposure control, adjustment of the mA and/or kV according to patient size, use of iterative reconstruction technique) 2010 [employer]- All Rights Reserved Reading location - IP/workstation name: [email or web address]
[2020-01-10] MEDS ORDERED: PIPERACILLIN/TAZOBACTAM 3.375 GM VIAL IV ONE (18:59)
[2020-01-10 19:21] LABS: APPEARANCE,URINE CLEAR; BILIRUBIN,URINE NEGATIVE (NEGATIVE); COLOR,URINE YELLOW; GLUCOSE, URINE NEGATIVE (NEGATIVE); KETONES,URINE NEGATIVE (NEGATIVE); LEUKOCYTE ESTERASE,URINE NEGATIVE (NEGATIVE); NITRITE,URINE NEGATIVE (NEGATIVE); PROTEIN,URINE NEGATIVE (NEGATIVE); UROBILINOGEN,URINE NEGATIVE mg/dL (<2.0)
[2020-01-10 20:34] LABS: INTERNATIONAL RATION (INR) 0.98
[2020-01-10 20:35] LABS: PARTIAL THROMBOPLASTIN TIME 29.3 SEC (23.5-35.8)
[2020-01-10] MEDS ORDERED: ONDANSETRON HCL INJ/PF 4 MG/2 ML SDV IV PRN (21:25)
[2020-01-10] MEDS ORDERED: LEVALBUTEROL HCL NEB 0.63 MG/3 ML AMPUL NEB PRN (21:25)
[2020-01-10] MEDS ORDERED: DEXTROSE 50%-WATER 25 GM/50 ML DISP.SYRIN IV PRN ×2 (21:25)
[2020-01-10] MEDS ORDERED: DEXTROSE 40% GEL 15 GM TUBE PO PRN ×2 (21:25)
[2020-01-10] MEDS ORDERED: GLUCAGON,HUMAN RECOMB 1 MG INJ SUBCUT PRN (21:25)
[2020-01-10] MEDS ORDERED: RINGERS SOLUTION,LACTATED 1,000 ML IV PRN (21:25)
[2020-01-10] MEDS ORDERED: FENTANYL CITRATE INJ/PF 100 MCG/2 ML AMPUL ONE (21:29)
[2020-01-10] MEDS ORDERED: LORAZEPAM INJ 2 MG/1 ML VIAL IV PRN (21:30)
[2020-01-10] MEDS ORDERED: MIDAZOLAM 2 MG/2 ML INJ ONE ×2 (21:30→23:11)
[2020-01-10] MEDS ORDERED: NICOTINE 21 MG/24 HR PATCH.TD24 TD PRN (21:30)
[2020-01-10] MEDS ORDERED: PROPOFOL INJ 200 MG/20 ML VIAL IV ONE (21:30)
[2020-01-10] MEDS ORDERED: ACETAMINOPHEN 650 MG SUPP.RECT PR PRN (21:30)
[2020-01-10] MEDS ORDERED: MORPHINE SULFATE 10 MG/ML INJ IV PRN ×3 (21:30)
[2020-01-10] MEDS ORDERED: HYDRALAZINE HCL INJ/PF 20 MG/1 ML SDV IV PRN (21:30)
[2020-01-10] MEDS ORDERED: DEXAMETHASONE SOD PHOSPHATE INJ 4 MG/1 ML VIAL ONE (21:30)
[2020-01-10] MEDS ORDERED: ONDANSETRON HCL INJ/PF 4 MG/2 ML SDV ONE (21:30)
[2020-01-10] MEDS ORDERED: METOPROLOL TARTRATE PF/INJ 5 MG/5 ML SDV IV PRN (21:32)
--- NOTE | 2020-01-10 21:32 | PDOC CONSULTATION ---
Consultation Consult Date: 01/10/20 Attending physician:: VIVEK OSUNA Provider Consulted: CYNTHIA LADD Consult reason:: appendicitis History of Present Illness Admission Date/PCP: 01/10/20 20:25 JANET MUNOZ MD History of Present Illness: JENNIFER RIVER is a 64 year old malePatient is a 64-year-old male who presents emergency department with a chief complaint of abdominal pain. Patient states that his pain started last night. States that the pain is in his mid lower abdomen, just below his navel. States that he does have history of a GI bleed in the past. Patient states that he has been out of his Protonix for the past week. Patient is a poor historian. He is on Plavix, but cannot not tell me why he is on Plavix. He states he is on it for high blood pressure Past Medical History Cardiac Medical History: Reports: Hyperlipidema - Hypertriglyceridemia, Hypertension, Peripheral Vascular Disease Denies: Coronary Artery Disease, Myocardial Infarction Pulmonary Medical History: Reports: Asthma, Chronic Obstructive Pulmonary Disease (COPD), Pneumonia Denies: Bronchitis, Tuberculosis EENT Medical History: Denies: Cataracts, Ears - Hearing aids Neurological Medical History: Denies: Hemorrhagic CVA, Ischemic CVA, Seizures Endocrine Medical History: Denies: Diabetes Mellitus Type 1, Diabetes Mellitus Type 2, Hyperthyroidism, Hypothyroidism Renal/ Medical History: Denies: Chronic Kidney Disease, Nephrolithiasis GI Medical History: Reports: Gastroesophageal Reflux Disease Musculoskeltal Medical History: Reports: Arthritis Psychiatric Medical History: Reports: Depression, Tobacco Dependency Denies: Alcohol Dependency, Substance Abuse Traumatic Medical History: Reports: None Hematology: Reports: Anemia - r/t GI bleed Denies: Bleeding Tendencies Infectious Medical History: Reports: None Past Surgical History Past Surgical History: Reports: Orthopedic Surgery - right foot, left BKA, Vascular Surgery - stents bilateral LE's Social History Lives with: Alone Smoking Status: Current Every Day Smoker Electronic Cigarette use?: No Frequency of Alcohol Use: Rare Hx Recreational Drug Use: No Drugs: None Hx Prescription Drug Abuse: No - Advance Directive Resuscitation Status: Full Code Family History Family History: Hypertension. denies: CAD, DM, Malignancy Parental Family History Reviewed: No Children Family History Reviewed: NA Sibling(s) Family History Reviewed.: NA Medication/Allergy Home Medications: Furosemide [Lasix 40 mg Tablet] 40 mg PO BID 08/06/14 Sertraline HCl [Zoloft 50 mg Tablet] 50 mg PO DAILY 08/06/14 Acetaminophen [Acetaminophen Extra Strength] 500 mg PO DAILYP PRN 01/10/20 Atenolol [Tenormin] 25 mg PO DAILY 01/10/20 Clopidogrel Bisulfate [Plavix 75 mg Tablet] 75 mg PO DAILY 01/10/20 Fenofibrate Nanocrystallized [Tricor 145 mg Tablet] 145 mg PO DAILY 01/10/20 Quetiapine Fumarate [Seroquel] 25 mg PO DAILY 01/10/20 Allergies/Adverse Reactions: aspirin [Aspirin] Adverse Reaction (Intermediate, Verified 08/30/17 10:30) GI upset iodine [Iodine] Adverse Reaction (Verified 08/30/17 10:30) Hives Review of Systems Constitutional: PRESENT: fatigue Eyes: ABSENT: as per HPI, visual disturbances, other Ears: ABSENT: as per HPI, hearing changes, other Nose, Mouth, and Throat: ABSENT: as per HPI, headache(s), mouth pain, sore throat, vertigo, other Breasts: ABSENT: as per HPI, other Cardiovascular: ABSENT: as per HPI, chest pain, dyspnea on exertion, edema, orthropnea, palpitations, other Gastrointestinal: PRESENT: abdominal pain Genitourinary: ABSENT: as per HPI, difficulty urinating, dysuria, hematuria, nocturia, other Musculoskeletal: ABSENT: as per HPI, back pain, deformity, joint swelling, muscle weakness, other Integumentary: ABSENT: as per HPI, diaphoresis, erythema, lesions, pruritus, rash, wounds, other Neurological: ABSENT: as per HPI, abnormal gait, abnormal movements, abnormal speech, confusion, convulsions, dizziness, focal weakness, frequent falls, lack of coordination, memory loss, numbness, paresthesias, restless legs, syncope, tingling, tremor(s), vertigo, weakness, other Psychiatric: ABSENT: as per HPI, anxiety, depression, hallucinations, homidical ideation, suicidal ideation, other Endocrine: ABSENT: as per HPI, cold intolerance, flushing, heat intolerance, menstrual abnormalities, polydipsia, polyphagia, polyuria, other Hematologic/Lymphatic: ABSENT: as per HPI, easy bleeding, easy bruising, lymphadenopathy, other Allergic/Immunologic: ABSENT: as per HPI, seasonal rhinorrhea, other Physical Exam Vital Signs: Temp Pulse Resp BP Pulse Ox 97.7 F 18 158/116 H 95 01/10/20 16:10 01/10/20 17:01 01/10/20 17:01 01/10/20 17:01 Intake & Output 01/09/20 01/10/20 01/11/20 06:59 06:59 06:59 Intake Total 1000 Balance 1000 Weight 85.5 kg General appearance: PRESENT: disheveled, mild distress, obese Head exam: PRESENT: normocephalic Eye exam: PRESENT: EOMI Ear exam: PRESENT: normal external ear exam Mouth exam: PRESENT: moist Teeth exam: PRESENT: poor dentation Neck exam: PRESENT: full ROM, lymphadenopathy Respiratory exam: PRESENT: clear to auscultation terra Cardiovascular exam: PRESENT: RRR Pulses: PRESENT: normal radial pulses, normal femoral pulses Vascular exam: PRESENT: normal capillary refill Breast: PRESENT: Normal GI/Abdominal exam: PRESENT: guarding, rebound, tenderness Extremities exam: PRESENT: full ROM Musculoskeletal exam: PRESENT: full ROM Neurological exam: PRESENT: altered, awake, oriented to person Psychiatric exam: PRESENT: unusual affect Skin exam: PRESENT: dry Results Laboratory Results: 01/10/20 16:42 01/10/20 16:37 01/10/20 01/10/20 01/10/20 16:37 16:37 16:42 WBC 22.2 H RBC 4.99 Hgb 15.9 Hct 44.5 MCV 89 MCH 31.9 MCHC 35.8 RDW 14.5 H Plt Count 283 Seg Neutrophils % Not Reportable Sodium 132.6 L Potassium 4.1 Chloride 97 L Carbon Dioxide 25 Anion Gap 11 BUN 11 Creatinine 0.83 Est GFR ( Amer) > 60 Glucose 125 H Lactic Acid 1.1 Calcium 11.4 H Total Bilirubin 0.5 AST 22 Alkaline Phosphatase 61 Total Protein 7.8 Albumin 4.8 Lipase 77.0 Urine Color Urine Appearance Urine pH Ur Specific [place]mer Urine Protein Urine Glucose (UA) Urine Ketones Urine Blood Urine Nitrite Ur Leukocyte Esterase Urine WBC (Auto) Urine RBC (Auto) Blood Type Antibody Screen 01/10/20 01/10/20 16:42 18:50 WBC RBC Hgb Hct MCV MCH MCHC RDW Plt Count Seg Neutrophils % Sodium Potassium Chloride Carbon Dioxide Anion Gap BUN Creatinine Est GFR ( Amer) Glucose Lactic Acid Calcium Total Bilirubin AST Alkaline Phosphatase Total Protein Albumin Lipase Urine Color YELLOW Urine Appearance CLEAR Urine pH 6.0 Ur Specific [place] 1.010 Urine Protein NEGATIVE Urine Glucose (UA) NEGATIVE Urine Ketones NEGATIVE Urine Blood NEGATIVE Urine Nitrite NEGATIVE Ur Leukocyte Esterase NEGATIVE Urine WBC (Auto) 0 Urine RBC (Auto) 0 Blood Type O POSITIVE Antibody Screen NEGATIVE Impressions: Abdomen/Pelvis CT 01/10/20 17:31 IMPRESSION: 1. ACUTE APPENDICITIS. NO EVIDENCE OF ABSCESS OR PERFORATION. 2. NO OTHER SIGNIFICANT OR ACUTE FINDING IN THE ABDOMEN OR PELVIS ON CT SCAN WITH IV CONTRAST. Assessment & Plan - Plan Summary Plan Summary: acute appendictis initially pt said he was on plavix, for unknown reason, after reviewed his medical chart, it was noted his last refill for plavix was in oct and only for 30 tabs when I asked the pt again, he stated he has not taken it in "a couple ofweeks" will plan on lap appendectomy I informed him of his risks of bleeding, infection, need of open surgery leak from intestine, and possible he understands and agrees to proceed.
[2020-01-10] MEDS ORDERED: BUPIVACAINE HCL 0.5%-EPI 1:200000 INJ/PF 30 ML VIAL ONE (21:36)
[2020-01-10] MEDS ORDERED: PROMETHAZINE HCL INJ 25 MG/1 ML VIAL IV PRN (22:38)
[2020-01-10] MEDS ORDERED: DIPHENHYDRAMINE HCL 50 MG/ML VIAL IV PRN (22:38)
[2020-01-10] MEDS ORDERED: FENTANYL CITRATE INJ/PF 100 MCG/2 ML AMPUL IV PRN ×3 (22:38)
[2020-01-10] MEDS ORDERED: MEPERIDINE HCL/PF INJ 25 MG/1 ML DISP.SYRIN IV PRN (22:38)
[2020-01-11] MEDS ORDERED: PIPERACILLIN/TAZOBACTAM 3.375 GM VIAL IV SCH
[2020-01-11] MEDS: PIPERACILLIN SODIUM/TAZOBACTAM 3.375 GM in NORMAL SALINE 100 ML IV SCH ×3 (00:23→12:45)
--- NOTE | 2020-01-11 00:31 | PDOC H&P ---
History of Present Illness Admission Date/PCP: 01/10/2020 20:25 JANET MUNOZ MD Patient complains of: Abdominal pain History of Present Illness: JENNIFER RIVER is a 64 year old male with a 1 day history of abdominal pain. He admits the onset of pain in his periumbilical region on the evening of 01/09/2020. The pain has been present constantly since onset and has gradually worsened becoming moderately severe at the time of presentation. The pain is described a nonradiating dull aching, worsened by activity and accompanied by anorexia. Patient is a very poor historian but denies other associated or accompanying signs and symptoms. He admits a prior similar episode with a g astrointestinal hemorrhage in the past. He has not identified any additional aggravating or ameliorating factors for his abdominal pain. In the emergency room he was found to have a leukocytosis of 22,200 and acute appendicitis without perforation or abscess formation by CT scan of the abdomen. Dr. Miguel asked for the medical service to admit the patient to the hospital and consult him for surgical evaluation and treatment. Patient is therefore being admitted to the hospitalist service. Past Medical History Cardiac Medical History: Reports: Hyperlipidema - Hypertriglyceridemia, Hypertension, Peripheral Vascular Disease Denies: Coronary Artery Disease, Myocardial Infarction Pulmonary Medical History: Reports: Asthma, Chronic Obstructive Pulmonary Disease (COPD), Pneumonia Denies: Bronchitis, Tuberculosis EENT Medical History: Denies: Cataracts, Ears - Hearing aids Neurological Medical History: Denies: Hemorrhagic CVA, Ischemic CVA, Seizures Endocrine Medical History: Denies: Diabetes Mellitus Type 1, Diabetes Mellitus Type 2, Hyperthyroidism, Hypothyroidism Renal/ Medical History: Denies: Chronic Kidney Disease, Nephrolithiasis Malignancy Medical History: Reports: None GI Medical History: Reports: Cirrhosis - Alcoholic liver disease, Gastroesophag eal Reflux Disease, Other - Upper GI hemorrhage, colonic polyposis Denies: Crohn's Disease, Ulcerative Colitis Musculoskeltal Medical History: Reports: Arthritis Denies: Gout Skin Medical History: Denies: Eczema, Psoriasis Psychiatric Medical History: Reports: Depression, Tobacco Dependency Denies: Alcohol Dependency, Substance Abuse Traumatic Medical History: Reports: None Hematology: Reports: Anemia - r/t GI bleed Denies: Bleeding Tendencies Infectious Medical History: Reports: None Past Surgical History Past Surgical History: Reports: Orthopedic Surgery - Right foot surgery, left BKA, Vascular Surgery - stents bilateral LE's, Other - Colonoscopy Social History Information Source: Patient Lives with: Alone Smoking Status: Current Every Day Smoker Electronic Cigarette use?: No Frequency of Alcohol Use: Rare Hx Recreational Drug Use: No Drugs: None Hx Prescription Drug Abuse: No - Advance Directive Resuscitation Status: Full Code Surrogate healthcare decision maker:: Audrey Kitchen Family History Family History: Hypertension, Other - Alcoholism with cirrhosis of the liver. denies: CAD, DM, Malignancy Parental Family History Reviewed: Yes Children Family History Reviewed: No Sibling(s) Family History Reviewed.: Yes Medication/Allergy Home Medications: Furosemide [Lasix 40 mg Tablet] 40 mg PO DAILY 08/06/14 Sertraline HCl [Zoloft 50 mg Tablet] 50 mg PO DAILY 08/06/14 Acetaminophen [Acetaminophen Extra Strength] 500 mg PO DAILYP PRN 01/10/20 Atenolol [Tenormin] 25 mg PO DAILY 01/10/20 Clopidogrel Bisulfate [Plavix 75 mg Tablet] 75 mg PO DAILY 01/10/20 Fenofibrate Nanocrystallized [Tricor 145 mg Tablet] 145 mg PO DAILY 01/10/20 Quetiapine Fumarate [Seroquel] 25 mg PO DAILY 01/10/20 Allergies/Adverse Reactions: aspirin [Aspirin] Adverse Reaction (Intermediate, Verified 08/30/17 10:30) GI upset iodine [Iodine] Adverse Reaction (Verified 08/30/17 10:30) Hives Review of Systems Constitutional: ABSENT: chills, fever(s) Eyes: ABSENT: visual disturbances, other - Eye pain Ears: ABSENT: hearing changes, other - Ear pain Nose, Mouth, and Throat: ABSENT: headache(s), sore throat Cardiovascular: ABSENT: chest pain, palpitations Respiratory: ABSENT: cough, dyspnea Gastrointestinal: PRESENT: as per HPI, abdominal pain. ABSENT: constipation, diarrhea, nausea, vomiting Genitourinary: ABSENT: dysuria, hematuria Musculoskeletal: ABSENT: back pain, joint swelling Integumentary: ABSENT: pruritus, rash Neurological: ABSENT: confusion, convulsions, focal weakness, memory loss, syncope Psychiatric: ABSENT: anxiety, depression Endocrine: ABSENT: cold intolerance, heat intolerance, polydipsia, polyphagia, polyuria Hematologic/Lymphatic: ABSENT: easy bleeding, easy bruising Allergic/Immunologic: ABSENT: seasonal rhinorrhea Physical Exam Vital Signs: Temp Pulse Resp BP Pulse Ox 97.7 F 18 158/116 H 95 01/10/20 16:10 01/10/20 17:01 01/10/20 17:01 01/10/20 17:01 Intake & Output 01/08/20 01/09/20 01/10/20 23:59 23:59 23:59 Intake Total 1000 Balance 1000 Weight 85.5 kg General appearance: PRESENT: no acute distress, cooperative, other - Patient has been medicated at the time of my evaluation. Head exam: PRESENT: atraumatic, normocephalic Eye exam: PRESENT: conjunctiva pink. ABSENT: conjunctival injection, scleral icterus Ear exam: PRESENT: normal external ear exam. ABSENT: bleeding, drainage Mouth exam: PRESENT: dry mucosa, neck supple Neck exam: ABSENT: thyromegaly, tracheal deviation Respiratory exam: PRESENT: prolonged expiratory phas - Minimally prolonged expiratory phase throughout all [place], symmetrical, unlabored, wheezes - Minimal expiratory wheezes throughout all [place] Cardiovascular exam: PRESENT: RRR. ABSENT: clicks, gallop, rubs Pulses: PRESENT: normal carotid pulses, normal radial pulses Vascular exam: PRESENT: normal capillary refill. ABSENT: pallor GI/Abdominal exam: PRESENT: hypoactive bowel sounds, soft Rectal exam: PRESENT: deferred Extremities exam: PRESENT: other - Status post left BKA. ABSENT: joint swelling, pedal edema Musculoskeletal exam: ABSENT: deformity, dislocation Neurological exam: PRESENT: altered - Very drowsy due to medication but arousable, CN II-XII grossly intact Psychiatric exam: PRESENT: appropriate affect - Limited evaluation due to post medication drowsiness, normal mood - Limited evaluation due to post medication drowsiness Skin exam: PRESENT: dry, intact, warm. ABSENT: jaundice, rash, urticaria Results Laboratory Results: 01/10/20 16:42 01/10/20 16:37 01/10/20 01/10/20 01/10/20 16:37 16:37 16:42 WBC 22.2 H RBC 4.99 Hgb 15.9 Hct 44.5 MCV 89 MCH 31.9 MCHC 35.8 RDW 14.5 H Plt Count 283 Seg Neutrophils % Not Reportable Sodium 132.6 L Potassium 4.1 Chloride 97 L Carbon Dioxide 25 Anion Gap 11 BUN 11 Creatinine 0.83 Est GFR ( Amer) > 60 Glucose 125 H Lactic Acid 1.1 Calcium 11.4 H Total Bilirubin 0.5 AST 22 Alkaline Phosphatase 61 Total Protein 7.8 Albumin 4.8 Lipase 77.0 Urine Color Urine Appearance Urine pH Ur Specific [place] Urine Protein Urine Glucose (UA) Urine Ketones Urine Blood Urine Nitrite Ur Leukocyte Esterase Urine WBC (Auto) Urine RBC (Auto) Blood Type Antibody Screen 01/10/20 01/10/20 16:42 18:50 WBC RBC Hgb Hct MCV MCH MCHC RDW Plt Count Seg Neutrophils % Sodium Potassium Chloride Carbon Dioxide Anion Gap BUN Creatinine Est GFR ( Amer) Glucose Lactic Acid Calcium Total Bilirubin AST Alkaline Phosphatase Total Protein Albumin Lipase Urine Color YELLOW Urine Appearance CLEAR Urine pH 6.0 Ur Specific [place] 1.010 Urine Protein NEGATIVE Urine Glucose (UA) NEGATIVE Urine Ketones NEGATIVE Urine Blood NEGATIVE Urine Nitrite NEGATIVE Ur Leukocyte Esterase NEGATIVE Urine WBC (Auto) 0 Urine RBC (Auto) 0 Blood Type O POSITIVE Antibody Screen NEGATIVE Impressions: Abdomen/Pelvis CT 01/10/20 17:31 IMPRESSION: 1. ACUTE APPENDICITIS. NO EVIDENCE OF ABSCESS OR PERFORATION. 2. NO OTHER SIGNIFICANT OR ACUTE FINDING IN THE ABDOMEN OR PELVIS ON CT SCAN WITH IV CONTRAST. Assessment and Plan - Diagnosis (1) Acute appendicitis without peritonitis Is this a current diagnosis for this admission?: Yes (2) Hypertension Qualifiers: Hypertension type: essential hypertension Qualified Code(s): I10 - Essential (primary) hypertension Is this a current diagnosis for this admission?: Yes (3) Peripheral vascular disease Is this a current diagnosis for this admission?: Yes (4) Hyperlipidemia Qualifiers: Hyperlipidemia type: unspecified Qualified Code(s): E78.5 - Hyperlipidemia, unspecified Is this a current diagnosis for this admission?: Yes (5) Gastroesophageal reflux disease with esophagitis Is this a current diagnosis for this admission?: Yes (6) Primary osteoarthritis involving multiple joints Is this a current diagnosis for this admission?: Yes (7) Tobacco use disorder, continuous Is this a current diagnosis for this admission?: Yes - Plan Summary Summary: Patient is admitted to medical floor where he will receive routine supportive and symptomatic cares. A surgical consultation with Dr. Eugenio Miguel will be obtained for evaluation and treatment of the patient's acute appendicitis. Patient will be treated with IV fluids and IV antibiotics including Zosyn. He will receive morphine sulfate 2 to 4 mg IV every 2 hours as needed for pain. He will receive Ativan 1 mg IV every 4 hours as needed for anxiety or restlessness. He will be NPO. CBCs, metabolic profiles, magnesium levels and additional radiographic studies will be obtained as appropriate. Postoperative care will be left to Dr. Miguel's discretion. Smoking cessation is advised and counseled briefly at the bedside. A nicotine replacement patch is available for the patient's use, if desired. - Time Time Spent with patient: 15-24 minutes Smoking Cessation Education: 3 to 10 minutes Medications reviewed and adjusted accordingly: Yes Anticipated discharge: Home - Inpatient Certification Based on my medical assessment, after consideration of the patient's comorbidities, presenting symptoms, or acuity I expect that the services needed warrant INPATIENT care.: Yes I certify that my determination is in accordance with my understanding of Medicare's requirements for reasonable and necessary INPATIENT services [42 CFR 412.3e].: Yes Medical Necessity: Significant Comorbidiites Make Outpatient Treatment Too Risky, Need Close Monitoring Due to Risk of Patient Decompensation, Need For IV Fluids, Need for Pain Control, Need for IV Antibiotics, Need for Surgery, Risk of Complication if Not Cared For in Hospital
[2020-01-11] MEDS: HEPARIN SOD (PORCINE) 5,000 UNIT/ML 1 ML VIAL SUBCUT SCH ×3 (01:05→14:06)
[2020-01-11] MEDS: FAMOTIDINE INJ/PF 20 MG/2 ML SDV IV SCH ×2 (01:05→10:12)
--- NOTE | 2020-01-11 01:49 | Operative Report ---
Nonrecallable Operative Report DATE OF SURGERY: 01/10/20 PREOPERATIVE DIAGNOSIS: Acute appendicitis POSTOPERATIVE DIAGNOSIS: Acute appendicitis operative OPERATION: Laparoscopic appendectomy SURGEON: CYNTHIA LADD ANESTHESIA: GA TISSUE REMOVED OR ALTERED: Appendix COMPLICATIONS: None ESTIMATED BLOOD LOSS: 25 cc INTRAOPERATIVE FINDINGS: Acute separative appendicitis PROCEDURE: Procedure note patient was brought to the operating room awake alert stable condition placed in the upper table supine position induced under general anesthesia and intubated. After appropriate timeout and site verification the procedure commenced. A Veress needle was placed in the umbilicus and the abdomen was insufflated with 6 L of CO2 gas An infraumbilical 5 mm incision was made with a 15 blade and a 5 mm port placed in the abdominal cavity Intra-abdominal visualization revealed no evidence of Veress needle trocar injury. A suprapubic 5 mm port was placed under direct vision being careful not to injure the bladder in the left lower quadrant 10 mm port all under direct vision. There was some purulent fluid noted in the right lower quadrant was suctioned dry once we did that we were able to mobilize the fibrinous adhesions between the appendix and the small bowel and placed the appendix on traction. The mesoappendix was taken down with one firing of the Endo ROHIT stapler with a vascular load memory came across the base of the appendix on the cecum with one firing of the Endo ROHIT stapler with a blue load. The appendix was placed in an Endobag and removed through the left lower quadrant port site. The pelvis right lower quadrant right abdominal cavity were irrigated with normal saline suctioned dry. Hemostasis of the appendiceal stump was noted to be intact. After we confirmed good hemostasis and and clear irrigant we then proceeded to close the abdominal cavity. 1 suture was used to close the 10 mm fascial defect in the left lower quadrant this was done under direct vision once this was closed the ports were removed the skin incisions were all then closed with 4-0 Biosyn suture. Steri-Strips completed the procedure. Estimated blood loss was less than 25 cc sponge needle counts were correct x2. The patient was awakened in the operating room extubated transferred recovery in stable condition. No complications. Sponge and needle counts correct x2.
[2020-01-11 06:09] LABS: ABSOLUTE LYMPHOCYTES (AUTO) 0.8 10^3/uL (0.5-4.7); ABSOLUTE MONOCYTES (AUTO) 0.2 10^3/uL (0.1-1.4); BASOPHILS % (AUTO) 0.1 % (0-2); HEMATOCRIT 39.7 % (37.9-51.0); LYMPHOCYTES % (AUTO) 5.2 % (13-45); MEAN CORPUSCULAR HEMOGLOBIN 30.9 pg (27.0-33.4); MEAN CORPUSCULAR HGB CONC 34.4 g/dL (32.0-36.0); MEAN CORPUSCULAR VOLUME 90 fl (80-97); MONOCYTES % (AUTO) 1.4 % (3-13); PLATELET COUNT 248 10^3/uL (150-450); RED BLOOD COUNT 4.43 10^6/uL (4.35-5.55); RED CELL DISTRIBUTION WIDTH 14.5 % (11.5-14.0); SEGMENTED NEUTROPHILS % (AUTO) 93.3 % (42-78); TOTAL CELLS COUNTED % (AUTO) 100 %; WHITE BLOOD COUNT 16.1 10^3/uL (4.0-10.5)
[2020-01-11 06:11] LABS: HEMOGLOBIN 13.7 g/dL (13.5-17.0)
[2020-01-11 06:23] LABS: ANION GAP 7 (5-19); BLOOD UREA NITROGEN 13 mg/dL (7-20); CALCIUM 9.4 mg/dL (8.4-10.2); CARBON DIOXIDE 25 mmol/L (22-30); CHLORIDE 101 mmol/L (98-107); CHOLESTEROL 125.72 mg/dL (0-200); GLUCOSE 127 mg/dL (75-110); POTASSIUM 4.5 mmol/L (3.6-5.0); TRIGLYCERIDES 202 mg/dL (<150)
[2020-01-11 06:39] LABS: DIRECT LDL 58 mg/dL (<100); VLDL CHOLESTEROL 40.4 mg/dL (10-31)
[2020-01-11] MEDS ORDERED: MORPHINE SULFATE 10 MG/ML INJ IV PRN (08:12)
[2020-01-11] MEDS ORDERED: MAGNESIUM SULFATE/D5W 1 GM/100 ML RTUPB IV SCH (09:30)
[2020-01-11] MEDS ORDERED: QUETIAPINE FUMARATE 25 MG TABLET PO SCH (10:00)
[2020-01-11] MEDS ORDERED: ATENOLOL 50 MG TABLET PO SCH (10:00)
[2020-01-11] MEDS ORDERED: FENOFIBRATE NANOCRYSTALLIZED 145 MG TABLET PO SCH (10:00)
[2020-01-11] MEDS ORDERED: SERTRALINE HCL 50 MG TABLET PO SCH (10:00)
[2020-01-11] MEDS ORDERED: FUROSEMIDE 40 MG TABLET PO SCH (10:00)
[2020-01-11] MEDS: MAGNESIUM SULFATE 1 GM/D5W 100 ML IV SCH ×2 (10:14→11:27)
--- NOTE | 2020-01-11 11:14 | PDOC DISCHARGE SUMMARY ---
Impression - Admit/DC Date/PCP Admission Date/Primary Care Provider: 01/10/20 20:25 JANET MUNOZ MD Discharge Date: 01/11/20 - Discharge Diagnosis (1) Acute appendicitis without peritonitis Is this a current diagnosis for this admission?: Yes (2) Gastroesophageal reflux disease with esophagitis Is this a current diagnosis for this admission?: Yes (3) Hyperlipidemia Is this a current diagnosis for this admission?: Yes (4) Hypertension Is this a current diagnosis for this admission?: Yes (5) Peripheral vascular disease Is this a current diagnosis for this admission?: Yes (6) Primary osteoarthritis involving multiple joints Is this a current diagnosis for this admission?: Yes (7) Tobacco use disorder, continuous Is this a current diagnosis for this admission?: Yes - Additional Information Resuscitation Status: Full Code Discharge Diet: As Tolerated Discharge Activity: Activity As Tolerated, No Lifting Over 10 Pounds, No Lifting/Push/Pulling Referrals: [facility] [Provider Group] - 01/28/20 8:15 am Prescriptions: Hydrocodone/Acetaminophen [[place] 10-325 mg Tablet] 1 tab PO Q6HP PRN #15 tablet PRN Reason: Ondansetron [Zofran Odt 4 mg Tablet] 1 - 2 tab PO Q4HP PRN #10 tab.rapdis PRN Reason: For Nausea/Vomiting Home Medications: Furosemide [Lasix 40 mg Tablet] 40 mg PO DAILY 08/06/14 Sertraline HCl [Zoloft 50 mg Tablet] 50 mg PO DAILY 08/06/14 Acetaminophen [Acetaminophen Extra Strength] 500 mg PO DAILYP PRN 01/10/20 Atenolol [Tenormin] 25 mg PO DAILY 01/10/20 Clopidogrel Bisulfate [Plavix 75 mg Tablet] 75 mg PO DAILY 01/10/20 Fenofibrate Nanocrystallized [Tricor 145 mg Tablet] 145 mg PO DAILY 01/10/20 Quetiapine Fumarate [Seroquel] 25 mg PO DAILY 01/10/20 Hydrocodone/Acetaminophen [[place] 10-325 mg Tablet] 1 tab PO Q6HP PRN #15 tablet 01/11/20 Ondansetron [Zofran Odt 4 mg Tablet] 1 - 2 tab PO Q4HP PRN #10 tab.rapdis 01/11/20 History of Present Illiness History of Present Illness: JENNIFER RIVER is a 64 year old male with a 1 day history of abdominal pain. He admits the onset of pain in his periumbilical region on the evening of 01/09/2020. The pain has been present constantly since onset and has gradually worsened becoming moderately severe at the time of presentation. The pain is described a nonradiating dull aching, worsened by activity and accompanied by anorexia. Patient is a very poor historian but denies other associated or accompanying signs and symptoms. He admits a prior similar episode with a gastrointestinal hemorrhage in the past. He has not identified any additional aggravating or ameliorating factors for his abdominal pain. In the emergency room he was found to have a leukocytosis of 22,200 and acute appendicitis without perforation or abscess formation by CT scan of the abdomen. Dr. Miguel asked for the medical service to admit the patient to the hospital and consult him for surgical evaluation and treatment. Patient is therefore being admitted to the hospitalist service. Hospital Course Hospital Course: Patient was admitted after CT of the abdomen revealed evidence of acute appendicitis without abscess or perforation. CBC revealed leukocytosis. Patient was given Zosyn and taken to the operating room by surgery. He underwent a laparoscopic appendectomy. Today he states his pain is minimal t kole still a little tender on palpation. He was given incentive spirometer to use. He was evaluated by the surgicalist and was deemed to be adequate for discharge home without any need for further antibiotics. He received IV magnesium riders to replete hypomagnesemia secondary to vomiting. Patient has been given adequate follow-ups. Physical Exam Vital Signs: Temp Pulse Resp BP Pulse Ox 97.7 F 78 18 117/60 92 01/11/20 07:20 01/11/20 07:20 01/11/20 07:20 01/11/20 07:20 01/11/20 07:20 Intake & Output 01/10/20 01/11/20 01/12/20 06:59 06:59 06:59 Intake Total 2520 Output Total 5 Balance 2515 Weight 88.4 kg General appearance: PRESENT: no acute distress, cooperative Neck exam: ABSENT: JVD Respiratory exam: PRESENT: clear to auscultation terra GI/Abdominal exam: PRESENT: soft, tenderness. ABSENT: rebound, rigid Neurological exam: PRESENT: alert, awake, oriented to person, oriented to place, oriented to time Results Laboratory Results: WBC 16.1 10^3/uL (4.0-10.5) H 01/11/20 05:36 RBC 4.43 10^6/uL (4.35-5.55) 01/11/20 05:36 Hgb 13.7 g/dL (13.5-17.0) D 01/11/20 05:36 Hct 39.7 % (37.9-51.0) 01/11/20 05:36 MCV 90 fl (80-97) 01/11/20 05:36 MCH 30.9 pg (27.0-33.4) 01/11/20 05:36 MCHC 34.4 g/dL (32.0-36.0) 01/11/20 05:36 RDW 14.5 % (11.5-14.0) H 01/11/20 05:36 Plt Count 248 10^3/uL (150-450) 01/11/20 05:36 Lymph % (Auto) 5.2 % (13-45) L 01/11/20 05:36 [place] % (Auto) 1.4 % (3-13) L 01/11/20 05:36 Eos % (Auto) 0.0 % (0-6) 01/11/20 05:36 Baso % (Auto) 0.1 % (0-2) 01/11/20 05:36 Absolute Neuts (auto) 15.0 10^3/uL (1.7-8.2) H 01/11/20 05:36 Absolute Lymphs (auto) 0.8 10^3/uL (0.5-4.7) 01/11/20 05:36 Absolute Monos (auto) 0.2 10^3/uL (0.1-1.4) 01/11/20 05:36 Absolute Eos (auto) 0.0 10^3/uL (0.0-0.6) 01/11/20 05:36 Absolute Basos (auto) 0.0 10^3/uL (0.0-0.2) 01/11/20 05:36 Total Counted 100 01/10/20 16:42 Seg Neutrophils % 93.3 % (42-78) H 01/11/20 05:36 Seg Neuts % (Manual) 81 % (42-78) H 01/10/20 16:42 Band Neutrophils % 3 % (3-5) 01/10/20 16:42 Lymphocytes % (Manual) 7 % (13-45) L 01/10/20 16:42 Atypical Lymphs % 2 % (0) 01/10/20 16:42 Monocytes % (Manual) 7 % (3-13) 01/10/20 16:42 Eosinophils % (Manual) 0 % (0-6) 01/10/20 16:42 Basophils % (Manual) 0 % (0-2) 01/10/20 16:42 Abs Neuts (Manual) 18.6 10^3/uL (1.7-8.2) H 01/10/20 16:42 Abs Lymphs (Manual) 2.0 10^3/uL (0.5-4.7) 01/10/20 16:42 Abs Monocytes (Manual) 1.6 10^3/uL (0.1-1.4) H 01/10/20 16:42 Absolute Eos (Manual) 0.0 10^3/uL (0.0-0.6) 01/10/20 16:42 Abs Basophils (Manual) 0.0 10^3/uL (0.0-0.2) 01/10/20 16:42 Platelet Comment ADEQUATE 01/10/20 16:42 Anisocytosis SLIGHT 01/10/20 16:42 PT 13.0 SEC (11.4-15.4) 01/10/20 16:37 INR 0.98 01/10/20 16:37 APTT 29.3 SEC (23.5-35.8) 01/10/20 16:37 Sodium 133.2 mmol/L (137-145) L 01/11/20 05:36 Potassium 4.5 mmol/L (3.6-5.0) 01/11/20 05:36 Chloride 101 mmol/L (98-107) 01/11/20 05:36 Carbon Dioxide 25 mmol/L (22-30) 01/11/20 05:36 Anion Gap 7 (5-19) 01/11/20 05:36 BUN 13 mg/dL (7-20) 01/11/20 05:36 Creatinine 1.04 mg/dL (0.52-1.25) 01/11/20 05:36 Est GFR ( Amer) > 60 (>60) 01/11/20 05:36 Est GFR (MDRD) Non-Af > 60 (>60) 01/11/20 05:36 Glucose 127 mg/dL (75-110) H 01/11/20 05:36 Lactic Acid 1.1 mmol/L (0.7-2.1) 01/10/20 16:37 Calcium 9.4 mg/dL (8.4-10.2) 01/11/20 05:36 Magnesium 1.2 mg/dL (1.6-2.3) L* 01/11/20 05:36 Total Bilirubin 0.5 mg/dL (0.2-1.3) 01/10/20 16:37 Direct Bilirubin 0.0 mg/dL (0.0-0.4) 01/10/20 16:37 Neonat Total Bilirubin Not Reportable 01/10/20 16:37 Neonat Direct Bilirubin Not Reportable 01/10/20 16:37 Neonat Indirect Bili Not Reportable 01/10/20 16:37 AST 22 U/L (17-59) 01/10/20 16:37 ALT 12 U/L (<50) 01/10/20 16:37 Alkaline Phosphatase 61 U/L (38-126) 01/10/20 16:37 Total Protein 7.8 g/dL (6.3-8.2) 01/10/20 16:37 Albumin 4.8 g/dL (3.5-5.0) 01/10/20 16:37 Triglycerides 202 mg/dL (<150) H 01/11/20 05:36 Cholesterol 125.72 mg/dL (0-200) 01/11/20 05:36 LDL Cholesterol Direct 58 mg/dL (<100) 01/11/20 05:36 VLDL Cholesterol 40.4 mg/dL (10-31) H 01/11/20 05:36 HDL Cholesterol 30 mg/dL (>40) L 01/11/20 05:36 Lipase 77.0 U/L (23-300) 01/10/20 16:37 Urine Color YELLOW 01/10/20 18:50 Urine Appearance CLEAR 01/10/20 18:50 Urine pH 6.0 (5.0-9.0) 01/10/20 18:50 Ur Specific [place] 1.010 01/10/20 18:50 Urine Protein NEGATIVE mg/dL (NEGATIVE) 01/10/20 18:50 Urine Glucose (UA) NEGATIVE mg/dL (NEGATIVE) 01/10/20 18:50 Urine Ketones NEGATIVE mg/dL (NEGATIVE) 01/10/20 18:50 Urine Blood NEGATIVE (NEGATIVE) 01/10/20 18:50 Urine Nitrite NEGATIVE (NEGATIVE) 01/10/20 18:50 Urine Bilirubin NEGATIVE (NEGATIVE) 01/10/20 18:50 Urine Urobilinogen NEGATIVE mg/dL (<2.0) 01/10/20 18:50 Ur Leukocyte Esterase NEGATIVE (NEGATIVE) 01/10/20 18:50 Urine WBC (Auto) 0 /HPF 01/10/20 18:50 Urine RBC (Auto) 0 /HPF 01/10/20 18:50 U Hyaline Cast (Auto) 4 /LPF 01/10/20 18:50 Squamous Epi Cells Auto <1 /HPF 01/10/20 18:50 Urine Mucus (Auto) RARE /LPF 01/10/20 18:50 Urine Ascorbic Acid NEGATIVE (NEGATIVE) 01/10/20 18:50 POC Stool Occult Blood POSITIVE (NEGATIVE) 01/10/20 15:59 Blood Type O POSITIVE 01/10/20 16:42 Antibody Screen NEGATIVE 01/10/20 16:42 Impressions: Abdomen/Pelvis CT 01/10/20 17:31 IMPRESSION: 1. ACUTE APPENDICITIS. NO EVIDENCE OF ABSCESS OR PERFORATION. 2. NO OTHER SIGNIFICANT OR ACUTE FINDING IN THE ABDOMEN OR PELVIS ON CT SCAN WITH IV CONTRAST. Plan Time Spent: Greater than 30 Minutes Stroke Is this a Stroke Patient?: No Acute Heart Failure - Is this a Heart Failure Patient?: No
--- NOTE | 2020-01-11 11:35 | PDOC PROGRESS REPORT ---
Subjective Reason For Visit: ACUTE APPENDICITIS WITHOUT PERFORATION OR ABSCESS Physical Exam Vital Signs: Temp Pulse Resp BP Pulse Ox 97.7 F 78 18 117/60 92 01/11/20 07:20 01/11/20 07:20 01/11/20 07:20 01/11/20 07:20 01/11/20 07:20 Intake & Output 01/10/20 01/11/20 01/12/20 06:59 06:59 06:59 Intake Total 2520 100 Output Total 5 Balance 2515 100 Weight 88.4 kg Results Laboratory Results: 01/11/20 05:36 01/11/20 05:36 01/10/20 01/10/20 01/10/20 16:37 16:37 16:42 WBC 22.2 H RBC 4.99 Hgb 15.9 Hct 44.5 MCV 89 MCH 31.9 MCHC 35.8 RDW 14.5 H Plt Count 283 Seg Neutrophils % Not Reportable Sodium 132.6 L Potassium 4.1 Chloride 97 L Carbon Dioxide 25 Anion Gap 11 BUN 11 Creatinine 0.83 Est GFR ( Amer) > 60 Glucose 125 H Lactic Acid 1.1 Calcium 11.4 H Magnesium Total Bilirubin 0.5 AST 22 Alkaline Phosphatase 61 Total Protein 7.8 Albumin 4.8 Triglycerides Cholesterol LDL Cholesterol Direct VLDL Cholesterol HDL Cholesterol Lipase 77.0 Urine Color Urine Appearance Urine pH Ur Specific Fleming Urine Protein Urine Glucose (UA) Urine Ketones Urine Blood Urine Nitrite Ur Leukocyte Esterase Urine WBC (Auto) Urine RBC (Auto) Blood Type Antibody Screen 01/10/20 01/10/20 01/11/20 16:42 18:50 05:36 WBC 16.1 H RBC 4.43 Hgb 13.7 D Hct 39.7 MCV 90 MCH 30.9 MCHC 34.4 RDW 14.5 H Plt Count 248 Seg Neutrophils % 93.3 H Sodium Potassium Chloride Carbon Dioxide Anion Gap BUN Creatinine Est GFR ( Amer) Glucose Lactic Acid Calcium Magnesium Total Bilirubin AST Alkaline Phosphatase Total Protein Albumin Triglycerides Cholesterol LDL Cholesterol Direct VLDL Cholesterol HDL Cholesterol Lipase Urine Color YELLOW Urine Appearance CLEAR Urine pH 6.0 Ur Specific Fleming 1.010 Urine Protein NEGATIVE Urine Glucose (UA) NEGATIVE Urine Ketones NEGATIVE Urine Blood NEGATIVE Urine Nitrite NEGATIVE Ur Leukocyte Esterase NEGATIVE Urine WBC (Auto) 0 Urine RBC (Auto) 0 Blood Type O POSITIVE Antibody Screen NEGATIVE 01/11/20 05:36 WBC RBC Hgb Hct MCV MCH MCHC RDW Plt Count Seg Neutrophils % Sodium 133.2 L Potassium 4.5 Chloride 101 Carbon Dioxide 25 Anion Gap 7 BUN 13 Creatinine 1.04 Est GFR ( Amer) > 60 Glucose 127 H Lactic Acid Calcium 9.4 Magnesium 1.2 L* Total Bilirubin AST Alkaline Phosphatase Total Protein Albumin Triglycerides 202 H Cholesterol 125.72 LDL Cholesterol Direct 58 VLDL Cholesterol 40.4 H HDL Cholesterol 30 L Lipase Urine Color Urine Appearance Urine pH Ur Specific Fleming Urine Protein Urine Glucose (UA) Urine Ketones Urine Blood Urine Nitrite Ur Leukocyte Esterase Urine WBC (Auto) Urine RBC (Auto) Blood Type Antibody Screen Impressions: Abdomen/Pelvis CT 01/10/20 17:31 IMPRESSION: 1. ACUTE APPENDICITIS. NO EVIDENCE OF ABSCESS OR PERFORATION. 2. NO OTHER SIGNIFICANT OR ACUTE FINDING IN THE ABDOMEN OR PELVIS ON CT SCAN WITH IV CONTRAST. Assessment & Plan - Diagnosis (1) Acute appendicitis without peritonitis Is this a current diagnosis for this admission?: Yes - Plan Summary Plan Summary: 64-year-old male status post laparoscopic appendectomy. He is doing well this morning. He ate without difficulty. His pain is controlled with oral pain medications. He is afebrile, and his vital signs are stable. I believe the patient is fit for discharge today. Follow-up with [place] [facility] in 7 to 10 days.
[2020-01-11 12:10] VITALS: BP 107/53
== END 2020-01-11 16:19 | disposition home or self-care (01) ==
LOC: ER 15:46 → EH 20:25 → INTOOBSV 20:25 → 4S 01-11 00:04
PROVIDERS: ADMIT Emergency Medicine; ATTEND Internal Medicine
DX: K35.80 Unspecified acute appendicitis (principal); K21.0 Gastro-esophageal reflux disease with esophagitis; E78.5 Hyperlipidemia, unspecified; I10 Essential (primary) hypertension; I73.9 Peripheral vascular disease, unspecified; M89.49 Other hypertrophic osteoarthropathy, multiple sites; E83.42 Hypomagnesemia; F17.200 Nicotine dependence, unspecified, uncomplicated; E66.9 Obesity, unspecified; Z60.2 Problems related to living alone; Z89.512 Acquired absence of left leg below knee; Z95.828 Presence of other vascular implants and grafts; Z79.899 Other long term (current) drug therapy; Z79.02 Long term (current) use of antithrombotics/antiplatelets
CPT/HCPCS: 44970; 96376; 99285; 96361; 96375; 96365; 86900; 86901; 36415 ×2; 86850; 82962; 83605; 83690; 83735; 85025 ×2; 85610; 85730; 82270; 80048; 80053; 81001; 80061; 88304 ×2; 74177; 99140; 00840; J2250; A9270 ×5; J3490 ×4; J1100; J1885; J3010; J2270 ×2; J2710; J2370; J3475; C9113; J0330; J2405; J7050; J7030; J2704; S0028; J2543 ×2; 840

== ENCOUNTER 2020-01-19 19:05 | Emergency (ER) | payer MEDICARE, MEDICAID ==
[~2020-01-19 19:05] MED LIST changes: -GLYCOPYRROLATE 1 MG/5 ML VIAL ONE; -KETOROLAC TROMETHAMINE 60 MG/2 ML SDV ONE; -NEOSTIGMINE METHYLSULFATE 10 MG/10 ML VIAL ONE; -PHENYLEPHRINE HCL INJ/PF 10 MG/1 ML SDV ONE; -SUCCINYLCHOLINE CHLORIDE INJ 200 MG/10 ML VIAL ONE
[2020-01-19] MEDS ORDERED: FENTANYL CITRATE INJ/PF 100 MCG/2 ML AMPUL IV ONE (19:12)
[2020-01-19] MEDS ORDERED: ETOMIDATE INJ/PF 20 MG/10 ML SDV IV ONE (19:18)
[2020-01-19] MEDS ORDERED: PROPOFOL INJ 200 MG/20 ML VIAL IV ONE (19:24)
[2020-01-19] MEDS ORDERED: HYDROXOCOBALAMIN IV ONE (19:24)
[2020-01-19] MEDS ORDERED: ROCURONIUM BROMIDE INJ 50 MG/5 ML VIAL IV ONE (19:24)
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
[2020-01-19] MEDS: PROPOFOL 1,000 MG/100 ML INFUS..BTL IV PRN ×2 (19:40→22:32)
[2020-01-19 19:48] LABS: ANION GAP 14 (5-19); BLOOD UREA NITROGEN 12 mg/dL (7-20); CALCIUM 8.9 mg/dL (8.4-10.2); CARBON DIOXIDE 20 mmol/L (22-30); CHLORIDE 103 mmol/L (98-107); GLUCOSE 131 mg/dL (75-110); POTASSIUM 3.7 mmol/L (3.6-5.0)
--- NOTE | 2020-01-19 19:51 | RADIOLOGY REPORT (SQ) ---
EXAM DESCRIPTION: CHEST SINGLE VIEW IMAGES COMPLETED DATE/TIME: 01/19/2020 7:26 pm REASON FOR STUDY: post intubation COMPARISON: None. EXAM PARAMETERS: NUMBER OF VIEWS: One view. TECHNIQUE: Single frontal radiographic view of the chest acquired. RADIATION DOSE: NA LIMITATIONS: None. FINDINGS: LUNGS AND PLEURA: No opacities, masses or pneumothorax. No pleural effusion. MEDIASTINUM AND HILAR STRUCTURES: No masses. Contour normal. HEART AND VASCULAR STRUCTURES: Heart normal in size. Normal vasculature. BONES: No acute findings. HARDWARE: Endotracheal tube is present. The tip of the tube appears to be about 3 cm above the zahraa a. An NG tube extends to the stomach. The tip is not seen. OTHER: No other significant finding. IMPRESSION: Endotracheal tube and NG tube placement. TECHNICAL DOCUMENTATION: JOB ID: [id number] 2010 [employer]- All Rights Reserved Reading location - IP/workstation name: [email or web address]
[2020-01-19 20:24] LABS: ABSOLUTE BASOPHILS # (AUTO) 0.1 10^3/uL (0.0-0.2); ABSOLUTE EOSINOPHILS # (AUTO) 0.3 10^3/uL (0.0-0.6); ABSOLUTE LYMPHOCYTES (AUTO) 2.2 10^3/uL (0.5-4.7); ABSOLUTE MONOCYTES (AUTO) 0.9 10^3/uL (0.1-1.4); ABSOLUTE NEUT (AUTO) 8.5 10^3/uL (1.7-8.2); BASOPHILS % (AUTO) 1.2 % (0-2); EOSINOPHILS % (AUTO) 2.9 % (0-6); HEMATOCRIT 41.5 % (37.9-51.0); HEMOGLOBIN 14.3 g/dL (13.5-17.0); LYMPHOCYTES % (AUTO) 18.2 % (13-45); MEAN CORPUSCULAR HEMOGLOBIN 32.4 pg (27.0-33.4); MEAN CORPUSCULAR HGB CONC 34.4 g/dL (32.0-36.0); MONOCYTES % (AUTO) 7.3 % (3-13); PLATELET COUNT 330 10^3/uL (150-450); RED BLOOD COUNT 4.41 10^6/uL (4.35-5.55); RED CELL DISTRIBUTION WIDTH 14.8 % (11.5-14.0); SEGMENTED NEUTROPHILS % (AUTO) 70.4 % (42-78); TOTAL CELLS COUNTED % (AUTO) 100 %; WHITE BLOOD COUNT 12.1 10^3/uL (4.0-10.5)
[2020-01-19 20:26] LABS: MEAN CORPUSCULAR VOLUME 94 fl (80-97)
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
[2020-01-19] MEDS: FENTANYL CITRATE INJ/PF 100 MCG/2 ML AMPUL IV PRN ×2 (20:44→21:49)
[2020-01-19 20:48] LABS: ARTERIAL BLOOD BASE EXCESS -11.4 mmol/L; ARTERIAL BLOOD H2CO3 2.17 mmol/L (1.05-1.35); ARTERIAL BLOOD HCO3 20.1 mmol/L (20-24); ARTERIAL BLOOD PO2 312.5 mmHg (80-100); ARTERIAL BLOOD TOTAL CO2 22.3 mmol/L (23-27)
[2020-01-19 20:49] LABS: ARTERIAL BLOOD O2 SATURATION 99.5 % (94-98)
[2020-01-19 20:51] LABS: ARTERIAL BLOOD FIO2 15L
[2020-01-19 20:52] LABS: ARTERIAL BLOOD PCO2 72.2 mmHg (35-45); ARTERIAL BLOOD PH 7.06 (7.35-7.45)
[2020-01-19] MEDS ORDERED: NOREPINEPHRINE BITARTRATE INJ/PF 4 MG/4 ML SDV IV ONE (21:16)
[2020-01-19] MEDS ORDERED: CALCIUM GLUCONATE 1000 MG/10 ML INJ IV ONE (21:17)
[2020-01-19] MEDS ORDERED: SODIUM BICARBONATE 8.4% INJ 50 MEQ/50 ML DISP.SYRIN IV ONE (21:17)
[2020-01-19] MEDS ORDERED: DEXTROSE 5%-WATER 250 ML with NOREPINEPHRINE BITARTRATE 4 MG IV PRN ×2 (21:17)
[2020-01-19 21:33] LABS: ARTERIAL BLOOD BASE EXCESS -8.3 mmol/L; ARTERIAL BLOOD H2CO3 1.82 mmol/L (1.05-1.35); ARTERIAL BLOOD HCO3 20.9 mmol/L (20-24); ARTERIAL BLOOD O2 SATURATION 99.4 % (94-98); ARTERIAL BLOOD PCO2 60.4 mmHg (35-45); ARTERIAL BLOOD PO2 269.9 mmHg (80-100); ARTERIAL BLOOD TOTAL CO2 22.8 mmol/L (23-27)
[2020-01-19 21:37] LABS: ARTERIAL BLOOD FIO2 100%
[2020-01-19 21:38] LABS: ARTERIAL BLOOD PH 7.16 (7.35-7.45)
[2020-01-19] MEDS ORDERED: NORMAL SALINE 1000 ML 1,000 ML IV ONE (21:42)
[2020-01-19] MEDS ORDERED: NORMAL SALINE 500 ML IV ONE (21:59)
[2020-01-19 22:23] VITALS: BP 134/75
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
== END 2020-01-19 22:46 | disposition short-term general hospital (02) ==
LOC: ER 19:05
DX: T59.811A Toxic effect of smoke, accidental (unintentional), initial encounter (principal); J96.21 Acute and chronic respiratory failure with hypoxia; J70.5 Respiratory conditions due to smoke inhalation; Y92.000 Kitchen of unspecified non-institutional (private) residence as the place of occurrence of the external cause; Y93.G3 Activity, cooking and baking; E87.2 Acidosis; R00.0 Tachycardia, unspecified; R39.89 Other symptoms and signs involving the genitourinary system; J44.9 Chronic obstructive pulmonary disease, unspecified; Z99.81 Dependence on supplemental oxygen; R41.82 Altered mental status, unspecified; F17.200 Nicotine dependence, unspecified, uncomplicated; I10 Essential (primary) hypertension; Z86.73 Personal history of transient ischemic attack (TIA), and cerebral infarction without residual deficits
CPT/HCPCS: 96376; 99291; 99292; 96361; 51702; 96375; 96365; 96368; 36415; 82375; 82962; 82803; 83605; 85025; 80048; 71045; 70450; 94660; 31500; 36556; J0610; J3490 ×4; J3010; J2704; J7060; J7030; J7040

== ENCOUNTER → 2020-06-21 | Outpatient (CLI) | payer MEDICARE, MEDICAID ==
[2020-06-21 10:18] LABS: ABSOLUTE EOSINOPHILS # (AUTO) 0.4 10^3/uL (0.0-0.6); ABSOLUTE LYMPHOCYTES (AUTO) 3.3 10^3/uL (0.5-4.7); ABSOLUTE MONOCYTES (AUTO) 0.7 10^3/uL (0.1-1.4); ABSOLUTE NEUT (AUTO) 5.4 10^3/uL (1.7-8.2); BASOPHILS % (AUTO) 0.4 % (0-2); EOSINOPHILS % (AUTO) 3.9 % (0-6); HEMATOCRIT 48.1 % (37.9-51.0); HEMOGLOBIN 16.5 g/dL (13.5-17.0); LYMPHOCYTES % (AUTO) 33.6 % (13-45); MEAN CORPUSCULAR HGB CONC 34.4 g/dL (32.0-36.0); MEAN CORPUSCULAR VOLUME 90 fl (80-97); MONOCYTES % (AUTO) 6.9 % (3-13); PLATELET COUNT 229 10^3/uL (150-450); RED BLOOD COUNT 5.33 10^6/uL (4.35-5.55); SEGMENTED NEUTROPHILS % (AUTO) 55.2 % (42-78); TOTAL CELLS COUNTED % (AUTO) 100 %; WHITE BLOOD COUNT 9.8 10^3/uL (4.0-10.5)
[2020-06-21 10:44] LABS: ALBUMIN 4.5 g/dL (3.5-5.0); ALKALINE PHOSPHATASE 48 U/L (38-126); ANION GAP 11 (5-19); ASPARTATE AMINO TRANSFERASE 20 U/L (17-59); BILIRUBIN,DIRECT 0.3 mg/dL (0.0-0.4); BILIRUBIN,TOTAL 0.4 mg/dL (0.2-1.3); BLOOD UREA NITROGEN 16 mg/dL (7-20); CALCIUM 9.8 mg/dL (8.4-10.2); CARBON DIOXIDE 26 mmol/L (22-30); CHLORIDE 104 mmol/L (98-107); CHOLESTEROL 188.93 mg/dL (0-200); GLUCOSE 92 mg/dL (75-110); POTASSIUM 4.1 mmol/L (3.6-5.0); TOTAL PROTEIN 7.5 g/dL (6.3-8.2); TRIGLYCERIDES 363 mg/dL (<150)
[2020-06-21 10:55] LABS: DIRECT LDL 106 mg/dL (<100)
[2020-06-21 11:12] LABS: VLDL CHOLESTEROL 72.6 mg/dL (10-31)
== END ==
LOC: OD 09:11
PROVIDERS: ATTEND Internal Medicine
DX: I10 Essential (primary) hypertension (principal); E78.5 Hyperlipidemia, unspecified; I73.9 Peripheral vascular disease, unspecified; K21.9 Gastro-esophageal reflux disease without esophagitis; R35.1 Nocturia; R53.83 Other fatigue
CPT/HCPCS: 36415; 80053; 80061; 84153; 84443; 85025